=== PATIENT | female | born 1935 | race Caucasian/White ===

== ENCOUNTER 2016-10-29 13:47 | Inpatient (IN) | payer OTHER ==
[2016-10-29] MEDS ORDERED: VASOTEC IV IVP STA (14:33)
--- NOTE | 2016-10-29 14:34 | ED.PDOC ---
General ED Provider: Dr. STACI AUGUSTIN JR Chief Complaint: Hypertension Stated Complaint: B/P HIGH AT HOME YESTERDAY THIS AM. STATES 30 MINUTES AGO AT HOME 184/98. LEFT ARM FEELS HEAVY, FULLNESS LEFT NECK AND FEELS JITTERY. NO HISTORY OF HTN.[ End ]since 1-24 am 98.3 98 16 98% 175/1003 10 left arm heaviness. pressure left neck. feels jittery.[ End ] Time Seen by Physician: 14:30 Mode of Arrival: Walk-In Information Source: Patient Exam Limitations: No limitations Primary Care [facility] and T[facility] Documentation Reviewed and Agree: No Review of Systems - Review Of Systems Constitutional: Reports: Malaise Cardiac: Reports: Chest pain (INTO LEFT ARM "HEAVINESS") GI: Reports: No symptoms : Reports: No symptoms Musculoskeletal: Reports: No symptoms Skin: Reports: No symptoms Neurological: Reports: Anxiety (JITTERY- ALWAYS WHEN MY BLOOD PRESSURE IS UP) Endocrine: Reports: No symptoms Hematologic/Lymphatic: Reports: No symptoms All Other Systems: Other Past Medical History - Past Medical History Endocrine: Reports: None Cardiovascular: Reports: None Respiratory: Reports: None Hematological: Reports: None Gastrointestinal: Reports: GERD, Other. Denies: Gallstones, Pancreatitis Genitourinary: Reports: Other Neuro/Psych: Reports: None Musculoskeletal: Reports: None Cancer: Reports: Other (renal cancer, pancreatic cancer x2) Last Menstrual Period: NA - Surgical History General Surgical History: Reports: Other (NEPHRECTOMY, 70% PANCREAS, GB,SPEEN AND PART OF STOMACH REMOVED.FOR CANCER) - Family History Family History: Reports: Unknown - Social History Smoking Status: Former smoker Hx Substance Use: No Alcohol Screening: None Physical Exam - Physical Exam Appearance: Well-appearing Pain Distress: Mild Eyes: KADE, EOMI, Conjunctiva clear ENT: Ears normal, Nose normal, Oropharynx normal Neck: Supple Respiratory: Airway patent, Breath sounds clear, Breath sounds equal, Respirations nonlabored Cardiovascular: RRR, Pulses normal, No rub, No murmur GI/: Soft, Nontender, No masses, Bowel sounds normal, No Organomegaly Musculoskeletal: Normal strength, ROM intact, No edema, No calf tenderness Skin: Warm, Dry, Normal color Neurological: Sensation intact, Motor intact, Reflexes intact, Cranial nerves intact, Alert, Oriented Psychiatric: Affect appropriate, Mood appropriate Interpretation - EKG Interpretation Time of EKG #1: 14:20 Rate: Normal Rhythm: Sinus Ectopy: None Alpha: NL ST Segment: Normal Critical Care Note - Critical Care Note Total Time (mins): 10 Course - Course Hematology/Chemistry: 10/29/16 14:40 10/29/16 14:40 Orders, Labs, Meds: Lab Review 10/29/16 14:40 WBC 5.30 RBC 4.40 Hgb 13.8 Hct 41.2 MCV 93.6 MCH 31.4 H MCHC 33.5 RDW Coeff of Fatuma 14.9 H Plt Count 256 Neutrophils % (Manual) 55.0 Lymphocytes % (Manual) 32.0 Monocytes % (Manual) 4.0 Reactive Lymphocytes 9.0 H D-Dimer 0.50 Sodium 143 Potassium 3.7 Chloride 106 Carbon Dioxide 28 Anion Gap 12.7 BUN 18 Creatinine 0.92 Estimated GFR (MDRD) 59.00 BUN/Creatinine Ratio 19.56 Glucose 119 H Calcium 9.7 Total Bilirubin 0.48 AST 17 ALT 14 Alkaline Phosphatase 102 Total Creatine Kinase 45 Troponin I 0.0230 B-Natriuretic Peptide 54 Total Protein 7.0 Albumin 3.7 Globulin 3.3 Albumin/Globulin Ratio 1.12 Orders Category Date Time Status EKG-(ED ONLY) Stat CARDIO 10/29/16 14:09 Completed ED RADAR REPAIRER APPLIED .ONCE EMERGENCY 10/29/16 14:30 Active ED IV/MEDIPORT/POWERPORT .ONCE EMERGENCY 10/29/16 14:30 Active B-TYPE NATRIURETIC PEPTIDE Stat LAB 10/29/16 14:40 Completed CBC W/ AUTO DIFF Stat LAB 10/29/16 14:40 Completed COMPREHENSIVE METABOLIC PANEL Stat LAB 10/29/16 14:40 Completed CREATINE KINASE Stat LAB 10/29/16 14:40 Completed D-DIMER Stat LAB 10/29/16 14:40 Completed MANUAL DIFFERENTIAL Stat LAB 10/29/16 14:40 Completed TROPONIN I Stat LAB 10/29/16 14:40 Completed 0.9 % Sodium Chloride [Saline Flush] MEDS 10/29/16 14:30 Active 1 syr IVF PRN PRN CHEST, 1V AP ONLY Stat RADS 10/29/16 14:30 Completed Medications Generic Name Dose Route Start Last Admin Trade Name Freq PRN Reason Stop Dose Admin Acetaminophen 650 mg 10/29/16 17:08 Tylenol PO Q4H PRN Mild Pain Enalaprilat 1.25 mg 10/29/16 18:32 Vasotec Iv IVP Q12H PRN SYST>150 Sodium Chloride 1,000 mls @ 75 mls/hr 10/29/16 17:30 10/29/16 18:01 Sodium Chloride IV 75 mls/hr .[id number] FRANCISCO Administration Meclizine HCl 25 mg 10/29/16 17:12 Antivert PO BID PRN Dizziness Non-Formulary Medication 3,000 unit 10/30/16 09:00 Cholecalciferol (Vitamin D3) [Vitamin D3] PO DAILY [facility] Non-Formulary Medication 1 each 10/30/16 09:00 Multivitamin [Multi-Vitamin Daily] PO DAILY [facility] Non-Formulary Medication 500 mg 10/30/16 09:00 Magnesium [Magnesium] PO DAILY [facility] Non-Formulary Medication 2,500 mcg 10/30/16 09:00 Cyanocobalamin (Vitamin B-12) [B-12] SL DAILY [facility] Pantoprazole Sodium 40 mg 10/30/16 09:00 Protonix PO DAILY [facility] Sodium Chloride 1 syr 10/29/16 14:30 Saline Flush IVF PRN PRN To flush IV Vital Signs: Temp Pulse Resp BP Pulse Ox 10/29/16 13:49 98.3 F 98 H 16 175/103 H 98 BETH Risk Score BETH Risk Score: Risk Score Odds of by 30D 0 0.1 (0.1-0.2) 1 0.3 (0.2-0.3) 2 0.4 (0.3-0.5) 3 0.7 (0.6-0.9) 4 1.2 (1.0-1.5) 5 2.2 (1.9-2.6) 6 3.0 (2.5-3.6) 7 4.8 (3.8-6.1) Departure - Departure Time of Disposition: 17:20 Disposition: ADMITTED INPATIENT Discharge Problem: Chest pain Condition: Good Pt referred to PMD for follow-up: Yes Allergies/Adverse Reactions: Allergies Iodine and Iodide Containing Produc Adverse Reaction (Verified 10/29/16 13:48) Home Medications: Ambulatory Orders Cholecalciferol (Vitamin D3) [Vitamin D-3] 3,000 unit PO DAILY 07/30/15 Cyanocobalamin (Vitamin B-12) [B-12] 2,500 mcg SL DAILY 07/30/15 Magnesium 500 mg PO DAILY 07/30/15 Multivitamin [Multi-Vitamin Daily] 1 each PO DAILY 07/30/15 Pantoprazole Sodium [Protonix] 40 mg PO DAILY 07/30/15
[2016-10-29 15:02] LABS: HEMATOCRIT 41.2 % (37.0-47.0); HEMOGLOBIN 13.8 g/dl (12.0-16.0)
[2016-10-29 15:03] LABS: ANISOCYTOSIS NOT PRESENT (NOT PRESENT); MEAN CORPUSCULAR HEMOGLOBIN 31.4 pg (27.0-31.0); MEAN CORPUSCULAR HGB CONC 33.5 (31.8-35.4); MEAN CORPUSCULAR VOLUME 93.6 fl (81.0-99.0); PLATELET COUNT 256 10^3/uL (140-440)
[2016-10-29 15:13] LABS: ALBUMIN 3.7 g/dL (3.4-5.0); ALBUMIN/GLOBULIN RATIO 1.12; ANION GAP 12.7; BILIRUBIN,TOTAL 0.48 mg/dL (0.00-1.20); BUN/CREATININE RATIO 19.56; CALCIUM 9.7 mg/dL (8.2-10.2); CREATININE 0.92 mg/dL (0.60-1.30); POTASSIUM 3.7 mmol/L (3.5-5.10); TROPONIN I 0.023 ng/ml (0.0000-0.4000)
--- NOTE | 2016-10-29 16:34 | DI ---
EXAM: Chest one view HISTORY: Chest pain COMPARISON: 07/02/2012 TECHNIQUE: Single view of the chest was performed FINDINGS: The lungs are clear, excepting for granulomatous calcification. Are hyperinflated. Ther e is no pleural effusion or pneumothorax. The heart is normal in size. The mediastinal contour is normal, noting atherosclerosis. There are no acute abnormalities of the bones. There are surgical c lips in the upper abdomen. IMPRESSION: 1. No acute cardiopulmonary process. 2. Hyperinflated lungs may suggest chronic obstructive pulmonary disease.
[2016-10-29] MEDS ORDERED: TYLENOL PO PRN (17:08)
[2016-10-29] MEDS ORDERED: ANTIVERT PO PRN (17:12)
[2016-10-29 17:59] VITALS: BMI 25.9
[2016-10-29] MEDS: SODIUM CHLORIDE 1,000 ML IV SCH (18:01)
[2016-10-29] MEDS ORDERED: VASOTEC IV IVP PRN (18:32)
[2016-10-29] MEDS ORDERED: ASPIRIN EC ONE (20:58)
[2016-10-29] MEDS ORDERED: ASPIRIN EC PO SCH (21:00)
[2016-10-29] MEDS ORDERED: ZESTRIL PO STA (21:34)
[2016-10-29 23:29] LABS: TROPONIN I 0.031 ng/ml (0.0000-0.4000)
[2016-10-30] MEDS: SODIUM CHLORIDE 1,000 ML IV SCH ×2 (06:13→22:57)
[2016-10-30 07:26] LABS: BASOPHILS # (AUTO) 0.1 K/uL (0-0.2); BASOPHILS % (AUTO) 1.5 % (0.0-3.0); EOSINOPHILS # (AUTO) 0.1 K/ul (0.0-0.7); EOSINOPHILS % (AUTO) 2.3 % (0.0-7.0); HEMATOCRIT 41.2 % (37.0-47.0); HEMOGLOBIN 13.4 g/dl (12.0-16.0); IMMATURE GRANULOCYTE % (AUTO) 0.2 % (0.0-5.0); LYMPHOCYTES # (AUTO) 2.7 K/uL (0.60-3.4); LYMPHOCYTES % (AUTO) 44.3 (10.0-50.0); MEAN CORPUSCULAR HEMOGLOBIN 30.8 pg (27.0-31.0); MEAN CORPUSCULAR HGB CONC 32.5 (31.8-35.4); MEAN CORPUSCULAR VOLUME 94.7 fl (81.0-99.0); MONOCYTES # (AUTO) 0.7 K/uL (0.4-2.0); MONOCYTES % (AUTO) 11.2 (0-10); NEUTROPHILS # (AUTO) 2.4 K/ul (2.0-6.9); NEUTROPHILS % (AUTO) 40.5; PLATELET COUNT 234 10^3/uL (140-440); RED BLOOD COUNT 4.35 10^6/ul (4.20-5.40)
[2016-10-30 07:57] LABS: ALBUMIN 3.4 g/dL (3.4-5.0); ALBUMIN/GLOBULIN RATIO 1.13; ANION GAP 12.8; BILIRUBIN,TOTAL 0.73 mg/dL (0.00-1.20); BUN/CREATININE RATIO 20.48; CALCIUM 9.1 mg/dL (8.2-10.2); CREATININE 0.83 mg/dL (0.60-1.30); POTASSIUM 3.8 mmol/L (3.5-5.10); TOTAL PROTEIN 6.4 g/dL (5.8-8.1); TROPONIN I 0.012 ng/ml (0.0000-0.4000)
[2016-10-30] MEDS: NON-FORMULARY MEDICATION (Cyanocobalamin (Vitamin B-12) [B-12] 2,500 MCG) SL SCH (08:31)
[2016-10-30] MEDS: MAG-OX PO SCH (08:34)
[2016-10-30] MEDS: MULTIVITAMIN PO SCH (08:35)
[2016-10-30] MEDS: PROTONIX PO SCH (08:36)
[2016-10-30] MEDS: VITAMIN D PO SCH (08:36)
[2016-10-30] MEDS ORDERED: MAGNESIUM 500 MG PO SCH (09:00)
[2016-10-30] MEDS ORDERED: CHOLECALCIFEROL 3000 UNIT PO SCH (09:00)
[2016-10-30] MEDS ORDERED: NON-FORMULARY MEDICATION (Multivitamin [Multi-Vitamin Daily] 1 EACH) PO SCH ×22 (09:00)
[2016-10-31] MEDS: PROTONIX PO SCH (05:46)
[2016-10-31 07:13] LABS: BASOPHILS # (AUTO) 0.1 K/uL (0-0.2); EOSINOPHILS # (AUTO) 0.2 K/ul (0.0-0.7); EOSINOPHILS % (AUTO) 2.6 % (0.0-7.0); HEMATOCRIT 40.3 % (37.0-47.0); HEMOGLOBIN 13.7 g/dl (12.0-16.0); IMMATURE GRANULOCYTE % (AUTO) 0.3 % (0.0-5.0); LYMPHOCYTES # (AUTO) 2.7 K/uL (0.60-3.4); LYMPHOCYTES % (AUTO) 35.3 (10.0-50.0); MEAN CORPUSCULAR HEMOGLOBIN 31.1 pg (27.0-31.0); MEAN CORPUSCULAR VOLUME 91.4 fl (81.0-99.0); MONOCYTES # (AUTO) 0.7 K/uL (0.4-2.0); MONOCYTES % (AUTO) 9.5 (0-10); NEUTROPHILS % (AUTO) 51.3; PLATELET COUNT 263 10^3/uL (140-440); RED BLOOD COUNT 4.41 10^6/ul (4.20-5.40)
[2016-10-31 07:33] LABS: ALBUMIN 3.4 g/dL (3.4-5.0); ALBUMIN/GLOBULIN RATIO 1.03; ANION GAP 10.6; BILIRUBIN,TOTAL 0.69 mg/dL (0.00-1.20); BUN/CREATININE RATIO 21.51; CALCIUM 9.1 mg/dL (8.2-10.2); CREATININE 0.79 mg/dL (0.60-1.30); POTASSIUM 3.6 mmol/L (3.5-5.10); TOTAL PROTEIN 6.7 g/dL (5.8-8.1)
--- NOTE | 2016-10-31 08:54 | HP ---
CHIEF COMPLAINT: Elevated blood pressure and had sensation left shoulder. SOURCE OF HISTORY: Patient, reliability good. HISTORY OF PRESENT ILLNESS: The patient woke up Thursday morning and took her blood pressure and it was elevated to about 180. Subsequent blood pressure determination was normal. She felt somewhat shaky when the blood pressure was elevated. The patient on Thursday morning was noted a rise in her blood pressure and also feeling shaky inside with weakness. She had sensation of being tired or a different sensation of the left mandible, as well as the left neck and left shoulder. The neck has pain and she always had pain in her neck. She does go to a chiropractor for the neck problem. This was not accompanied by nausea, anorexia or sweating. The patient was evaluated in the emergency and the emergency room physician felt that the patient needed further work-up and so admission was felt necessary. PAST PERSONAL HISTORY: The patient had cataract surgery in the right eye, cholecystectomy, history of pancreatectomy with splenectomy and partial gastrectomy, right renal nephrectomy secondary to carcinoma. Removal of parathyroid adenoma. FAMILY HISTORY: Sister was diabetic. SOCIAL HISTORY: The patient is and resides with her . 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 She used to smoke, but stopped several years ago. No alcoholic beverages. MEDICATIONS: Prior to this admission Protonix 40 mg daily Vitamin B12,500 mcg sublingually daily Vitamin D3 3,000 IU daily Multivitamin one daily Magnesium 500 mg daily Antivert 25 mg twice a day as needed ALLERGIES: The patient is allergic is Iodine and Iodine contrast medium. REVIEW OF SYSTEMS: CONSTITUTIONAL: The patient is alert with no fever and no chills or fatigue. BATTERY PLATE REMOVER: No headaches and no ataxia. No history of seizure disorder and no tremors. VISUAL: Denies any blurred vision, double vision or transient loss of vision. AUDITORY: Hearing is adequate. Denies any tinnitus. No pain or drainage. RESPIRATORY: No cough, no hemoptysis. CARDIOVASCULAR: Patient had wire threader rise of blood pressure without any significant headache. This later was followed by ill defined sensation of the left shoulder and left mandible, not necessarily pain. She has pain in the left side of the neck, but has chronic neck problems. GASTROINTESTINAL: Denies any nausea or anorexia, dysphagia or abdominal pain. GENITOURINARY: Denies any pain, frequency or urgency of urination. MUSCULOSKELETAL: Denies any significant joint or muscle pains. INTEGUMENT: Denies any rash or pruritus. ENDOCRINE: Negative. HEMATOLOGIC: No history of prolonged bleeding. PSYCHIATRIC: Affect is normal. PHYSICAL EXAMINATION: GENERAL: We have a 81 year old female admitted to the hospital because of elevated blood pressure in the wire threader hours. VITAL SIGNS: HEAD: Unremarkable. FACE: Symmetrical and equal with no facial weakness. No tenderness in the frontal or maxillary sinus areas to palpation under pressure. EYES: Pupils equal/reactive to light. Conjunctivae not pale. Sclerae not icteric. MOUTH: Unremarkable. THROAT: No inflammation, tumors or exudate. NECK: No masses. No bruit. No tenderness. No rigidity. CHEST: Essentially symmetrical and equal with good expansion. LUNGS: Breath sounds are heard in both sides. No rales or wheezing. HEART: Audible and regular with good tones. No murmurs. ABDOMEN: Scar from previous surgeries. No ventral herniation. No remarkable tenderness. Bowel sounds are active. No bruit. LOWER EXTREMITIES: Symmetrical and equal with no significant ankle edema. Pedal pulses present. UPPER EXTREMITIES: Symmetrical and equal. ASSESSMENT: 1. HYPERTENSION, FLUCTUATING 2. ILL DEFINED SYMPTOMS OF LEFT MANDIBLE AND LEFT SHOULDER 3. LEFT NECK PAIN 4. 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 HISTORY OF RIGHT RENAL CELL CARCINOMA, OPERATED. PLAN: 1. Urine collection for catecholamines and DMA. I explained to the patient that I don't know exactly what is causing the rise for the blood pressure in the morning, but we will be looking into it. I know a tumor know as Pheochromocytoma will produce that fluctuating rise in blood pressure. MTDD
[2016-10-31] MEDS ORDERED: ZEBETA PO SCH (09:00)
--- NOTE | 2016-10-31 09:06 | PN ---
DATE OF VISIT: 10/30/16 The patient today is alert and oriented times four, not dyspneic or tachypneic. She had not had the tired sensation in the left mandible and left shoulder today. She did undergo stress testing plus echocardiogram. The unofficial result transmitted to me that the studies were unremarkable. I need to see the official report before discussing it with the patient. The patient's vital signs at 1:56 p.m. showed a temperature 97.5, pulse 82, blood pressure 151/77 and at 10 o'clock was 140/80, 5:29 was 128/70, 2 o'clock in the morning 140/60. Respiratory rate 20, oxygen saturation 99 to 100 at room air. We are collecting urine for the catecholamines. I also would request a plasma free metanephrines and conjugated normetanephrines. [facility]
[2016-10-31] MEDS: NON-FORMULARY MEDICATION (Cyanocobalamin (Vitamin B-12) [B-12] 2,500 MCG) SL SCH (09:36)
[2016-10-31] MEDS: MAG-OX PO SCH (09:37)
[2016-10-31] MEDS: MULTIVITAMIN PO SCH (09:37)
[2016-10-31] MEDS: VITAMIN D PO SCH (09:37)
[2016-10-31 10:53] VITALS: BP 151/66; TEMP 97.7
--- NOTE | 2016-10-31 11:30 | PCM.CONS ---
CONSULTING PROVIDER: Dr. LIZA MADRIGAL ATTENDING PROVIDER: Dr. NICOLASA [facility] DATE OF SERVICE: 10/31/16 SUBJECTIVE: This 81 year old WHITE/ F was hospitalized 10/29/16. The patient was seen in consultation for chest pain and hypertension. The stress echo was negative for ischemia. She had an episode of SVT post exercise which was broken by carotid massage. The patient may benefit from a beta zulema. REVIEW OF SYSTEMS: CONSTITUTIONAL: No night sweats. No fatigue, malaise, lethargy. No fever or chills. HEENT: Eyes: No visual changes. No eye pain. No eye discharge. ENT: No runny nose. No epistaxis. No sinus pain. No odynophagia. No congestion. RESPIRATORY: No cough, no congestion. No hemoptysis. CARDIOVASCULAR: No angina symptoms. No CHF symptoms. No atypical chest pain for CAD. No palpitations. No shortness of breath. GASTROINTESTINAL: No abdominal pain. No nausea or vomiting. No diarrhea or constipation. No hematemesis. No hematochezia. GENITOURINARY: No urgency. No frequency. No dysuria. No hematuria. No obstructive symptoms. No discharge. No pain. No significant abnormal bleeding. MUSCULOSKELETAL: No musculoskeletal pain; no joint swelling. NEUROLOGICAL: Awake, alert, oriented to time, place and person. No headache. No neck pain. No syncope. No seizures. No dizziness. PSYCHIATRIC: Not anxious. No depression. No suicidal thoughts. No homicidal thoughts. SKIN: No rash. No lesions. No wounds. ENDOCRINE: No unexplained weight loss. No weight gain. HEMATOLOGIC/LYMPHATIC: No anemia. No purpura. No petechiae. No prolonged or excessive bleeding. No palpable lymph nodes. PHYSICAL EXAMINATION: GENERAL: The patient is awake, alert and oriented, lying in bed in no distress. VITAL SIGNS: Temperature 97.3 F, Pulse 74, Respiratory Rate 16, BP 134/64, Pulse Ox 95% HEENT: Head normocephalic, atraumatic. Eyes: Extraocular muscles are intact. Pupils are equal, round and reactive to light and accommodation. Ears: No lesions. Nose appeared normal. Throat: No exudate or erythema. NECK: Supple. No JVD, no carotid bruit. No lymphadenopathy or thyromegaly. LUNGS: Clear to auscultation. Percussion note normal. Chest symmetrical. HEART: S1, S2, no S3. No murmurs. No cyanosis or clubbing. No ascites. Pulses: Dorsalis pedis and posterior tibial pulses +1 to +2 both sides. ABDOMEN: Soft. Non-tender. Bowel sounds active. No CVA tenderness. No mass felt. EXTREMITIES: No edema. Full range of motion of all extremities, equal. NEUROLOGIC: No focal deficit. Cranial nerves II through XII are grossly intact. No headache, no double vision or headache. SKIN: Not dry. Intact. Turgor-normal. LYMPHATIC: No palpable lymph nodes/no lymphedema. MUSCULOSKELETAL: Normal joints with no swelling. Muscle tone is normal. LAB REVIEW: 10/31/16 06:45 10/31/16 06:45 10/31/16 06:45: WBC 7.70, RBC 4.41, Hgb 13.7, Hct 40.3, MCV 91.4, MCH 31.1 H, MCHC 34.0, RDW Coeff of Fatuma 14.6, Plt Count 263, Immature Gran % (Auto) 0.3, Neut % (Auto) 51.3, Lymph % (Auto) 35.3, Terry % (Auto) 9.5, Eos % (Auto) 2.6, Baso % (Auto) 1.0, Immature Gran # (Auto) 0.0, Neut # 4.0, Lymph # 2.7, Terry # 0.7, Eos # 0.2, Baso # 0.1, Sodium 140, Potassium 3.6, Chloride 109 H, Carbon Dioxide 24, Anion Gap 10.6, BUN 17, Creatinine 0.79, Estimated GFR (MDRD) 70.00 , BUN/Creatinine Ratio 21.51, Glucose 98, Calcium 9.1, Total Bilirubin 0.69, AST 19, ALT 13, Alkaline Phosphatase 105, Total Protein 6.7, Albumin 3.4, Globulin 3.3, Albumin/Globulin Ratio 1.03 10/30/16 07:00: Sodium 141, Potassium 3.8, Chloride 110 H, Carbon Dioxide 22 L, Anion Gap 12.8, BUN 17, Creatinine 0.83, Estimated GFR (MDRD) 66.00, BUN/ Creatinine Ratio 20.48, Glucose 88, Calcium 9.1, Total Bilirubin 0.73, AST 19, ALT 14, Alkaline Phosphatase 91, Total Creatine Kinase 46, Troponin I 0.0120, Total Protein 6.4, Albumin 3.4, Globulin 3.0, Albumin/Globulin Ratio 1.13 ASSESSMENT: 1. Chest pain noncardiac 2. Hypertension borderline 3. Episode of SVT post exercise RECOMMENDATIONS/PLAN: 1. Zebeta 2.5 mg twice a day for labile systolic hypertension. Plan and coordination of the patient's care discussed in the presence of Traffic Incident Management Manager and Nurse. CONDITION: STABLE SCRIBED BY: CARLY RAMIREZ Stripper Shovel Operator scribed while in presence of service performed by Dr. LIZA MADRIGAL on 10/31/16 ([id number])
--- NOTE | 2016-10-31 13:01 | ECHOSTRESS ---
Date of Exam: 10/30/16 [facility]ing [facility] Reason for Echo: CHEST PAIN, HTN, STRESS TEST--NO ISCHEMIA M-Mode Normal Adult Results LV Dimensions Normal Adult Results AoV Opening excursions >1.6 LVEDD-base- 3.5-5.8 Ao root dimensions 2.0-3.7 LVESD-base- 3.1-4.6 L. Atrium dimensions 1.9-3.8 Post. Wall thickness 0.8-1.1 IV septum (thickness) 0.7-1.2 Post. Wall excursion 0.72-1.3 Septal motion Systolic motion R. Ventricular cavity 1.5-2.0 LVEF 60% Paradoxical septal wall motion 2-D: NORMAL LEFT VENTRICULAR CONTRACTILITY--RESTING AND POST EXERCISE M-MODE: MV: AV: TV: PV: CHAMBER SIZE: WALL MOTION: NORMAL LEFT VENTRICULAR CONTRACTILITY--RESTING AND POST EXERCISE PERICARDIUM: INTERPRETATION: 1. NORMAL LEFT VENTRICULAR CONTRACTILITY--RESTING AND POST EXERCISE MTDD
--- NOTE | 2016-10-31 13:13 | STRESSMOD ---
Ordering Physician: NICOLASA FLEMING Date of Test: 10/30/16 Medical History: CHEST PAIN, HTN, L ARM PAIN, L JAW PAIN Current Medications: ANTIVERT Physical Findings: S1, S2, NO S3 Resting EKG: SINUS RHYTHM/NO ACUTE CHANGES Target Heart Rate: 119/141 STAGE MPH/GRADE HEART RATE BPM BLOOD PRESSURE mmhg RHYTHM S-T SEGMENT UP DOWN SYMPTOMS,COMMENTS At Rest 90 164/74 SR X NONE 1 1.7/0% 126 182/62 SR X NONE 2 1.7/5% 3 1.7/10% 4 2.5/12% 5 3.4/14% 6 4.2/16% 7 5.18% Immediately after 136 SR X FATIGUE Total Time: 4:20 Maximum Heart Rate Reached: 134 Reason for Termination: FATIGUE ___ INTERPRETATION: 97% OXYGEN SATURATION WITH EXERCISE ON ROOM AIR METS 3.4 1. NO EVIDENCE OF ISCHEMIA BY ST-T WAVE 2. NO CHEST PAIN OR CHEST DISCOMFORT 3. BLOOD PRESSURE RESPONSE HYPERTENSION/RESTING HYPERTENSION 4. NO ARRHYTHMIAS NORMAL LEFT VENTRICULAR CONTRACTILITY RESTING AND POST EXERCISE SVT WITH RATE 135/MINUTE NOTED POST EXERCISE. -CONVERTED TO SINUS RHYTHM WITH CAROTID MESSAGE MTDD
--- NOTE | 2016-10-31 13:27 | ECHO2D ---
Date of Exam: 10/30/16 [facility] Reason for Echo: CHEST PAIN, HTN M-Mode Normal Adult Results LV Dimensions Normal Adult Results AoV Opening excursions >1.6 >1.6 LVEDD-base- 3.5-5.8 4.7 Ao root dimensions 2.0-3.7 3.3 LVESD-base- 3.1-4.6 L. Atrium dimensions 1.9-3.8 4.1 Post. Wall thickness 0.8-1.1 1.1 IV septum (thickness) 0.7-1.2 1.0 Post. Wall excursion 0.72-1.3 NORMAL Septal motion NORMAL Systolic motion R. Ventricular cavity 1.5-2.0 NORMAL LVEF 60% 66% Paradoxical septal wall motion NORMAL 2-D : 2-D M Mode Echocardiogram was performed using apical four chamber and left parasternal long and short axis views. Mitral, tricuspid and aortic valves appear to be normal. Contractility of the left ventricle seems to be normal, so is the cavity size. Left atrial cavity size and aortic root appear to be normal. There is no pericardial effusion. There is no thrombus noted in the left ventricular or left aortic cavity. No mitral valve prolapse noted. M-MODE: MV: NORMAL AV: NORMAL TV: NORMAL PV: CHAMBER SIZE: NORMAL WALL MOTION: NORMAL PERICARDIUM: NORMAL INTERPRETATION: 1. NORMAL 2 "D" "M" MODE ECHO MTDD
--- NOTE | 2016-10-31 13:44 | CONS ---
DATE OF CONSULTATION: 10/30/16 REASON FOR CONSULTATION: Hypertension, arm and jaw discomfort. HISTORY OF PRESENT ILLNESS: This is a 81-year-old female patient with complaint that 30 minutes prior to coming to the emergency room she began feeling "jittery". She explained when she had an episode of hypertension the day before this episode, the symptoms were similar. She said she began feeling a "heaviness" in her left arm radiating upward to her left neck and left jaw. She denies having pain in her chest. She also denied having nausea or vomiting, shortness of breath or diaphoresis. She said she did feel a generalized weakness with the episode. REVIEW OF SYSTEMS: CONSTITUTIONAL: No night sweats. No fatigue, malaise, lethargy. No fever or chills. HEENT: Eyes: No visual changes. No eye pain. No eye discharge. ENT: No runny nose. No epistaxis. No sinus pain. No sore throat. No odynophagia. No ear pain. No congestion. RESPIRATORY: No cough, no congestion. No hemoptysis. CARDIOVASCULAR: See above. No wheezing, no edema, no PND, no orthopnea, no weight gain. GASTROINTESTINAL: No abdominal pain. No nausea or vomiting. No diarrhea or constipation. No hematemesis. No hematochezia. GENITOURINARY: No urgency. No frequency. No dysuria. No hematuria. No obstructive symptoms. No discharge. No pain. No significant abnormal bleeding. MUSCULOSKELETAL: Lower back pain. NEUROLOGICAL: No headache. No neck pain. No syncope. No seizures. No dizziness. PSYCHIATRIC: Not anxious. No depression. No suicidal thoughts. No homicidal thoughts. SKIN: Warm and dry. ENDOCRINE: No unexplained weight loss. No weight gain. HEMATOLOGIC/LYMPHATIC: No anemia. No purpura. No petechiae. No prolonged or excessive bleeding. No palpable lymph nodes. MEDICATIONS: (Reviewed with its side effects in detail - Iodine) 1. Protonix 2. MVI 3. Antivert 4. Magnesium 5. Vitamin B12 6. Vitamin D3 ALLERGIES: IODINE AND IODIDE CONTAINING PRODUCTS PAST MEDICAL HISTORY/PAST SURGICAL HISTORY: 1. GERD 2. Renal cancer 3. Pancreatic cancer and recurrence 4. Renal cancer status post right nephrectomy 5. Splenectomy 6. 70% of pancreas removed 7. Cholecystectomy SOCIAL/PERSONAL/FAMILY HISTORY: The patient is a light smoker by history since 1963. No alcohol use. . Family History: Mother - hypertension. Father - diabetes mellitus. Siblings - Diabetes mellitus, hypertension (sister). PHYSICAL EXAMINATION: GENERAL: The patient is awake, alert, oriented times three. Height 5'4", weight 151 lbs. VITAL SIGNS: BP 128/70, pulse 65, respiratory rate 18, temperature 97.1, 02 sat 97% on room air. HEENT: Head normocephalic, atraumatic. Eyes: Extraocular muscles are intact. Pupils are equal, round and reactive to light and accommodation. Ears: No lesions. Nose appeared normal. Throat: No exudate or erythema. NECK: Supple. No JVD, no carotid bruit. No lymphadenopathy or thyromegaly. LUNGS: Clear to auscultation. Percussion note normal. Chest symmetrical. HEART: S1, S2, no S3. No murmurs. No cyanosis or clubbing. No ascites. Pulses: Dorsalis pedis and posterior tibial pulses +2 both sides. ABDOMEN: Soft. Nontender. Bowel sounds active. No CVA tenderness. No mass felt. EXTREMITIES: No cyanosis. No edema. Full range of motion of all extremities, equal. NEUROLOGIC: No focal deficit. Cranial nerves II through XII are grossly intact. No headache, no double vision or headache. SKIN: Warm and dry. Intact. Turgor - normal. LYMPHATIC: No palpable lymph nodes/no lymphedema. MUSCULOSKELETAL: Normal joints with no swelling. Muscle tone is normal. LABS/X-RAYS/INVESTIGATIONS/INTERIM RELEVANT DATA: Chest x-ray - no acute cardiopulmonary process. Hyperinflated lungs suggesting COPD. Cardiac markers times two within normal limits. EKG #1 sinus rhythm. EKG #2 sinus rhythm. TSH 3.425, BNP 54, FT4 1.05. Triglycerides 54, cholesterol 155 , HDL 51, LDL 93, chol/HDL 3.0. WBC 5.30, hgb 13.8, platelets 256, HCT 41.2. Sodium 143, chloride 106, BUN 18, glucose 119, K+ 3.7, c02 28, creatinine 0.92. ASSESSMENT: 1. CHEST PAIN, LEFT 2. RENAL CELL CARCINOMA, RIGHT NEPHRECTOMY 3. PANCREATIC CANCER - METASTATIC PLAN: 1. Echo - normal. 2. Stress echo - no ischemia. 3. Lipid profile good. 4. The case discussed with attending. 5. EKG times two/cardiac markers all negative. Thanks for referral. TIME SPENT: 60 minutes. GOLDY
--- NOTE | 2016-11-04 09:56 | CONS ---
DATE OF SERVICE: 10/30/16 CONSULT FOLLOWUP SUBJECTIVE: 81-year-old white female hospitalized with left shoulder pain, left neck pain and severe hypertension. The patient's condition is stable at the present time. REVIEW OF SYSTEMS: CONSTITUTIONAL: No night sweats. No fatigue, malaise, lethargy. No fever or chills. HEENT: Eyes: No visual changes. No eye pain. No eye discharge. ENT: No runny nose. No epistaxis. No sinus pain. No sore throat. No odynophagia. No ear pain. No congestion. RESPIRATORY: No cough, no congestion. No hemoptysis. CARDIOVASCULAR: No angina symptoms. No CHF symptoms. No atypical chest pain for CAD. No palpitations. No shortness of breath. GASTROINTESTINAL: No abdominal pain. No nausea or vomiting. No diarrhea or constipation. No hematemesis. No hematochezia. GENITOURINARY: No urgency. No frequency. No dysuria. No hematuria. No obstructive symptoms. No discharge. No pain. No significant abnormal bleeding. MUSCULOSKELETAL: No musculoskeletal pain. No joint swelling. No arthritis. NEUROLOGICAL: No headache. No neck pain. No syncope. No seizures. No dizziness. PSYCHIATRIC: Not anxious. No depression. No suicidal thoughts. No homicidal thoughts. SKIN: No rash. No lesions. No wounds. ENDOCRINE: No unexplained weight loss. No weight gain. HEMATOLOGIC/LYMPHATIC: No anemia. No purpura. No petechiae. No prolonged or excessive bleeding. No palpable lymph nodes. PHYSICAL EXAMINATION: GENERAL: The patient is oriented to time, place and person. VITAL SIGNS: Temperature 97, pulse 65, respiratory rate 18, BP 128/70, pulse ox 97%. HEENT: Head normocephalic, atraumatic. Eyes: Extraocular muscles are intact. Pupils are equal, round and reactive to light and accommodation. Ears: No lesions. Nose appeared normal. Throat: No exudate or erythema. NECK: Supple. No JVD, no carotid bruit. No lymphadenopathy or thyromegaly. LUNGS: Decreased breath sounds. Clear to auscultation. Percussion note normal. Chest symmetrical. HEART: S1, S2, no S3. No murmurs. No cyanosis or clubbing. No ascites. Pulses: Dorsalis pedis and posterior tibial pulses +1 bilaterally. ABDOMEN: Soft. Nontender. Bowel sounds active. No CVA tenderness. No mass felt. EXTREMITIES: No pedal edema. Full range of motion of all extremities, equal. NEUROLOGIC: No focal deficit. Cranial nerves II through XII are grossly intact. No headache, no double vision or headache. SKIN: Not dry. Intact. Turgor - normal. LYMPHATIC: No palpable lymph nodes/no lymphedema. MUSCULOSKELETAL: Normal joints with no swelling. Muscle tone is normal. EKG sinus rhythm. No acute changes times two. Cardiac markers negative. ASSESSMENT: 1. CHEST PAIN LIKELY ETIOLOGY NONCARDIAC - THE PATIENT DOES NOT HAVE ANY OTHER RISK FACTORS. THE PATIENT'S LIPID PROFILE IS NEGATIVE. ECHO SHOWED NORMAL LV CONTRACTILITY, NORMAL VALVES. STRESS ECHO - NO ISCHEMIA. THE PATIENT HAD SVT POST EXERCISE WITH RATE OF 135 PER MINUTE, WAS BROKEN WITH CAROTID MASSAGE. THE PATIENT HAS HYPERTENSIVE RESPONSE TO EXERCISE AND ALSO THE BASELINE BLOOD PRESSURE WAS HIGH. RECOMMENDATIONS: 1. Low dose beta zulema or Cardizem 60 mg twice a day. The patient's chest pain seems to be noncardiac. CONDITION: Stable. MTDD
--- NOTE | 2016-11-04 11:33 | DS ---
PATIENT IDENTIFICATION: 81 year old female who was admitted to the hospital via the emergency room. The patient had noted a marked rise of her blood pressure early in the morning hours for the last two days. The patient, on the second day, felt some heaviness sensation or discomfort in the left mandibular area, as well as the left shoulder prompting the emergency room visit. The work-up in the emergency room was unremarkable consisting of normal cardiac enzymes and isoenzymes. No acute changes in EKG. Chest x-ray without any acute cardiopulmonary process. HOSPITAL COURSE: Renal panel showed a estimated GFR at 59 initially and went up to 70 on the day of discharge. Stress test was negative for any ischemic changes and no chest discomfort. Echocardiogram normal. Normal valves and ejection fraction 60%. Plasma free and conjugated metanephrines and normetanephrine were collected, as well as urine for catecholamines. BMA is scheduled after following a diet. Blood pressure on admission was 175/103 and then 6 p.m. was 198 and 190 and by 7:28 was 134/62 and 9:48 160/80 and watershed coordinator hours was 126/70, 2 a.m. 142/60 and 5 a.m. 128/70, at 10 a.m. 148/80, 1 :56 p.m. 151/77, 5:40 p.m. 140/77, 10 p.m. 158/73, 10/31/16 at 2 a.m. 129/68 and 6 p.m. 134/64, 10 a.m. 151/66. This patient was given Vasotec 1.25 mg IV in the emergency room and was given prn and this was discontinued. Lisinopril 20 mg daily was instituted. Consulting Management Lead, Dr. Heck, did prescribe Zebeta 2.5 mg twice a day. The patient's vital signs were more or less stable during the hospital stay and no chest pain and no recurrence of the ill defined symptomatology involving the left mandible and left shoulder. The patient at the time of discharge was alert , ambulatory with movement of all extremities. FACE: Symmetrical and equal with no facial weakness. No tenderness in the frontal or maxillary sinus areas. NECK: No masses, no bruit. LUNGS: Clear to auscultation. HEART: Normal sinus rhythm. ABDOMEN: Soft with no tenderness. This patient has scar from previous surgery. LOWER EXTREMITIES: No tenderness. FINAL DIAGNOSES: 1. HYPERTENSION, FLUCTUATING. ETIOLOGY UNDETERMINED. 2. ILL DEFINED SYMPTOMATOLOGY INVOLVING THE MANDIBLE AND LEFT SHOULDER, NONCARDIAC 3. HISTORY OF RIGHT RENAL CELL CARCINOMA, OPERATED SEVERAL YEARS AGO 4. 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 Ziac 2.4/6.25 mg tablet twice a day. 2. See me in about a week and hopefully we will have the results of the plasma free and conjugated MN and NMN. MTDD
[2016-11-05 02:24] LABS: NORMETANEPHRINE, PL 43 pg/mL (0-145)
[2016-11-05 07:36] LABS: METANEPHRINE, PL 25 pg/mL (0-62)
[2016-11-08 02:12] LABS: URINE DOPAMINE 33 ug/L (Undefined); URINE EPINEPHRINE 1 ug/L (Undefined); URINE EPINEPHRINE 24 HR 4 ug/24 hr (0-20); URINE NOREPINEPHRINE 7 ug/L (Undefined); URINE NOREPINEPHRINE 24 HR 27 ug/24 hr (0-135)
[2016-11-11 09:24] LABS: URINE DOPAMINE 24 HR 129 ug/24 hr (0-510)
== END 2016-10-31 13:10 | disposition home or self-care (01) | DRG 305 ==
LOC: ED 13:47 → MEDSURG B 16:47
PROVIDERS: ADMIT General Practice; ATTEND General Practice
DX: I10 Essential (primary) hypertension (principal); I47.1 Supraventricular tachycardia; R07.89 Other chest pain; R68.84 Jaw pain; M25.512 Pain in left shoulder; R68.89 Other general symptoms and signs; Z85.07 Personal history of malignant neoplasm of pancreas; Z85.528 Personal history of other malignant neoplasm of kidney; Z79.899 Other long term (current) drug therapy; Z90.5 Acquired absence of kidney; Z72.0 Tobacco use; Z90.411 Acquired partial absence of pancreas
CPT/HCPCS: 36415; 80053; 80061; 81050; 82384; 82550; 83880; 84439; 84443; 84484; 85007; 85025; 85379; 93005; 93010; 99223; 99232; 99239; 99284

== ENCOUNTER 2017-03-03 10:11 | Outpatient (CLI) ==
[2017-03-03 12:47] LABS: BASOPHILS # (AUTO) 0.1 K/uL (0-0.2); BASOPHILS % (AUTO) 1.1 % (0.0-3.0); EOSINOPHILS # (AUTO) 0.1 K/ul (0.0-0.7); EOSINOPHILS % (AUTO) 1.9 % (0.0-7.0); HEMATOCRIT 42.6 % (37.0-47.0); IMMATURE GRANULOCYTE % (AUTO) 0.2 % (0.0-5.0); LYMPHOCYTES # (AUTO) 2.2 K/uL (0.60-3.4); LYMPHOCYTES % (AUTO) 46.1 (10.0-50.0); MEAN CORPUSCULAR HGB CONC 32.9 (31.8-35.4); MEAN CORPUSCULAR VOLUME 94.5 fl (81.0-99.0); MONOCYTES # (AUTO) 0.4 K/uL (0.4-2.0); NEUTROPHILS # (AUTO) 1.9 K/ul (2.0-6.9); NEUTROPHILS % (AUTO) 41.7; PLATELET COUNT 269 10^3/uL (140-440); RED BLOOD COUNT 4.51 10^6/ul (4.20-5.40); WHITE BLOOD COUNT 4.66 K/ul (4.6-10.2)
[2017-03-03 12:55] LABS: BILIRUBIN,URINE Negative (NEGATIVE); KETONES,URINE Negative (NEGATIVE); LEUKOCYTE ESTERASE ,URINE Trace (NEGATIVE); NITRITE,URINE Negative (NEGATIVE); PH,URINE 7.5 (5-9); PROTEIN,URINE Negative (NEGATIVE); URINE, BLOOD Trace-intact (NEGATIVE)
[2017-03-03 12:56] LABS: ADD URINE MICROSCOPIC YES
[2017-03-03 12:59] LABS: ALBUMIN 3.7 g/dL (3.4-5.0); ANION GAP 13.2; BILIRUBIN,TOTAL 0.59 mg/dL (0.00-1.20); BUN/CREATININE RATIO 20.45; CALCIUM 9.7 mg/dL (8.2-10.2); CHOL/HDL RATIO 3.2 (4.5-5.5); CREATININE 0.88 mg/dL (0.60-1.30); POTASSIUM 4.2 mmol/L (3.5-5.10); TOTAL PROTEIN 7.4 g/dL (5.8-8.1)
== END 2017-03-03 10:12 | disposition home or self-care (01) ==
LOC: LAB 10:11
PROVIDERS: ATTEND General Practice
DX: K21.9 Gastro-esophageal reflux disease without esophagitis (principal); C64.1 Malignant neoplasm of right kidney, except renal pelvis; C25.9 Malignant neoplasm of pancreas, unspecified; M51.36 Other intervertebral disc degeneration, lumbar region; D35.1 Benign neoplasm of parathyroid gland; Z79.899 Other long term (current) drug therapy
CPT/HCPCS: 36415; 80053; 80061; 81001; 85025

== ENCOUNTER 2017-07-23 09:23 | Outpatient (CLI) ==
[2017-07-23 10:16] LABS: BASOPHILS # (AUTO) 0.1 K/uL (0-0.2); BASOPHILS % (AUTO) 1.2 % (0.0-3.0); EOSINOPHILS # (AUTO) 0.1 K/ul (0.0-0.7); EOSINOPHILS % (AUTO) 1.7 % (0.0-7.0); HEMATOCRIT 41.4 % (37.0-47.0); HEMOGLOBIN 13.9 g/dl (12.0-16.0); IMMATURE GRANULOCYTE % (AUTO) 0.2 % (0.0-5.0); LYMPHOCYTES # (AUTO) 2.2 K/uL (0.60-3.4); MEAN CORPUSCULAR HEMOGLOBIN 31.2 pg (27.0-31.0); MEAN CORPUSCULAR HGB CONC 33.6 (31.8-35.4); MEAN CORPUSCULAR VOLUME 92.8 fl (81.0-99.0); MONOCYTES # (AUTO) 0.5 K/uL (0.4-2.0); MONOCYTES % (AUTO) 9.3 (0-10); NEUTROPHILS # (AUTO) 2.1 K/ul (2.0-6.9); NEUTROPHILS % (AUTO) 42.6; PLATELET COUNT 263 10^3/uL (140-440); RED BLOOD COUNT 4.46 10^6/ul (4.20-5.40); WHITE BLOOD COUNT 4.82 K/ul (4.6-10.2)
[2017-07-23 10:37] LABS: ALBUMIN 3.8 g/dL (3.4-5.0); ALBUMIN/GLOBULIN RATIO 1.09; ANION GAP 11.5; BILIRUBIN,TOTAL 0.8 mg/dL (0.00-1.20); BUN/CREATININE RATIO 21.42; CALCIUM 9.9 mg/dL (8.2-10.2); CREATININE 0.84 mg/dL (0.60-1.30); POTASSIUM 4.5 mmol/L (3.5-5.10); TOTAL PROTEIN 7.3 g/dL (5.8-8.1)
[2017-07-24 06:12] LABS: TESTOSTERONE 48 ng/dL (3-41)
[2017-07-24 19:15] LABS: FREE TESTOSTERONE 2.5 pg/mL (0.0-4.2)
== END 2017-07-23 09:24 | disposition home or self-care (01) ==
LOC: LAB 09:23
PROVIDERS: ATTEND Physician Assistant Medical
DX: R03.0 Elevated blood-pressure reading, without diagnosis of hypertension (principal); L82.1 Other seborrheic keratosis; D22.39 Melanocytic nevi of other parts of face; L57.0 Actinic keratosis; L65.9 Nonscarring hair loss, unspecified
CPT/HCPCS: 36415; 80053; 82626; 82652; 84402; 84403; 85025

== ENCOUNTER 2017-09-04 13:14 | Outpatient (CLI) ==
[2017-09-04 13:25] LABS: BILIRUBIN,URINE Negative (NEGATIVE); KETONES,URINE Negative (NEGATIVE); LEUKOCYTE ESTERASE ,URINE Trace (NEGATIVE); NITRITE,URINE Negative (NEGATIVE); PH,URINE 7.5 (5-9); PROTEIN,URINE Negative (NEGATIVE); URINE, BLOOD Trace-intact (NEGATIVE)
[2017-09-04 13:33] LABS: ADD URINE MICROSCOPIC YES
[2017-09-04 13:38] LABS: ALBUMIN 3.6 g/dL (3.4-5.0); ALBUMIN/GLOBULIN RATIO 0.9; ANION GAP 13.3; BILIRUBIN,TOTAL 0.52 mg/dL (0.00-1.20); BUN/CREATININE RATIO 21.42; CHOL/HDL RATIO 3.2 (4.5-5.5); CREATININE 0.84 mg/dL (0.60-1.30); POTASSIUM 4.3 mmol/L (3.5-5.10); TOTAL PROTEIN 7.6 g/dL (5.8-8.1)
[2017-09-04 13:40] LABS: BASOPHILS # (AUTO) 0.1 K/uL (0-0.2); BASOPHILS % (AUTO) 1.4 % (0.0-3.0); EOSINOPHILS # (AUTO) 0.1 K/ul (0.0-0.7); EOSINOPHILS % (AUTO) 2.6 % (0.0-7.0); HEMOGLOBIN 14.2 g/dl (12.0-16.0); IMMATURE GRANULOCYTE % (AUTO) 0.4 % (0.0-5.0); LYMPHOCYTES # (AUTO) 2.1 K/uL (0.60-3.4); LYMPHOCYTES % (AUTO) 41.1 (10.0-50.0); MEAN CORPUSCULAR HEMOGLOBIN 31.1 pg (27.0-31.0); MEAN CORPUSCULAR VOLUME 94.3 fl (81.0-99.0); MONOCYTES # (AUTO) 0.5 K/uL (0.4-2.0); MONOCYTES % (AUTO) 10.5 (0-10); NEUTROPHILS # (AUTO) 2.2 K/ul (2.0-6.9); PLATELET COUNT 290 10^3/uL (140-440); RED BLOOD COUNT 4.56 10^6/ul (4.20-5.40); WHITE BLOOD COUNT 5.04 K/ul (4.6-10.2)
== END 2017-09-04 13:15 | disposition home or self-care (01) ==
LOC: LAB 13:14
PROVIDERS: ATTEND General Practice
DX: I10 Essential (primary) hypertension (principal); Z79.899 Other long term (current) drug therapy
CPT/HCPCS: 36415; 80053; 80061; 81001; 85025

== ENCOUNTER 2017-09-18 11:21 | Observation (INO) ==
[2017-09-18 12:55] VITALS: BMI 26.1
--- NOTE | 2017-09-18 13:57 | CT ---
EXAM: CT sinuses/facial bones without contrast HISTORY: Left submandibular swelling of concern for sialolith COMPARISON: None TECHNIQUE: Serial axial images of the facial bones/sinuses were obtained without IV contrast. These were viewed in coronal, sagittal and axial planes. FINDINGS: The thyroid is heterogeneous. There is a 3 mm calcification in the left submandibular space seen on axial image 16 and coronal imag e 79 may represent a small stone in the left sublingual duct. No definitive abscess or inflammation is identified. No additional stone is identified. The remaining soft tissues are unremarkable. Paranasal sinuses are clear. The orbital globes are normal. Submandibular glands are normal. IMPRESSION: 1. 3 mm calcification in the left submandibular space anteriorly suggestive of a stone in the distal sublingual duct consistent with patient history. There is no focal fluid collection to suggest absc ess and no distinct inflammatory changes present. 2. Heterogeneous appearance of the thyroid.
[2017-09-18] MEDS: ROCEPHIN 1 GM in SODIUM CHLORIDE 50 ML IV SCH (15:00)
[2017-09-18] MEDS ORDERED: LATANOPROST OP SCH (21:00)
[2017-09-18] MEDS ORDERED: NON-FORMULARY MEDICATION (Pantoprazole Sodium [Protonix] 40 MG) PO SCH (21:00)
[2017-09-18] MEDS ORDERED: MULTIVITAMIN PO ONE (21:17)
[2017-09-18] MEDS ORDERED: PROTONIX ONE (21:17)
[2017-09-18] MEDS: NON-FORMULARY MEDICATION (Multivitamin [Multi-Vitamin Daily] 1 EACH) PO SCH (21:24)
[2017-09-19] MEDS: ROCEPHIN 1 GM in SODIUM CHLORIDE 50 ML IV SCH (08:55)
[2017-09-19] MEDS ORDERED: TIMOLOL MALEATE OP SCH (09:00)
[2017-09-19] MEDS: NON-FORMULARY MEDICATION (Multivitamin [Multi-Vitamin Daily] 1 EACH) PO SCH (09:02)
[2017-09-19 10:03] VITALS: BP 145/82; TEMP 98.5
--- NOTE | 2017-10-02 12:11 | SSS ---
CHIEF COMPLAINT: Swelling left side of neck and submandibular area. HISTORY OF PRESENT ILLNESS: The patient noted the swelling on the left submandibular area with no significant pain on Thursday morning, two days prior to presentation to the office and subsequent admission. She noted that the swelling is less in the morning and increases in size towards the end of the day. The patient was seen at the office and indeed had a mass in the submandibular area, which is not remarkably tender and smooth on manual palpation. There are no other significant masses. The patient was felt to have a stone in the salivary gland, sublingual. The patient was advised admission on observation status to make a diagnosis. She also would be started on antibiotics and the obstruction, if indeed is the problem will result to infection if not treated. The patient was initially advised that she probably would need a referral to an Ear, Nose and Throat doctor for further care more so if the diagnosis is confirmed. The patient had a parathyroid adenoma removed some three years ago with elevated serum calcium. PAST HISTORY: She had a previous right nephrectomy for renal cell carcinoma and distal pancreatectomy with frenectomy and also gastrectomy. She was advised that about 70% of her pancreas was removed. She also had a previous cholecystectomy. She has bilateral cataract problems and is scheduled to have surgery beginning early next year. The patient had a colonoscopy two years ago. Endoscopy 14 years ago. FAMILY HISTORY: Father was hypertensive with type II diabetes. Mother was also hypertensive, as well as sister. History of diabetes and CVA on the mother side. 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 She is and resides with her . She stopped smoking since 1964 and does not use any alcoholic beverages. MEDICATIONS: Prior to this admission. Protonix 40 mg daily near bedtime Vitamin B-12 sublingual 2,500 mcg daily Vitamin D-3 2,000 IU daily Magnesium 1,000 mg daily Antivert 25 mg twice a day as needed Latanoprost 2.5 ml one drop both eyes at bedtime Timolol Maleate 15 ml one drop every morning, bilateral DRUG ALLERGIES: The patient is allergic to iodine and Iodide containing products. PHYSICAL EXAMINATION: GENERAL/APPEARANCE: We have a 82 year old female admitted to the hospital on observation because of swelling on the left side of neck and also on the submandibular area. There are no inflammations or ulcerations in the mouth and buccal mucosa and floor. VITALS: Temperature 98.6, pulse 72, blood pressure 164/80, respiratory rate 16, oxygen saturation 97 on room air. 5'4", 152 pounds. HEENT: Head is unremarkable. Face is symmetrical and equal with no facial weakness and no tenderness to palpation in the frontal or maxillary sinus areas. Eyes-the pupils are equal and reactive to light about 3 mm in size. Conjunctivae not pale. Sclera not icteric. Mouth-no inflammation or ulcerations noted. There is no swelling in the buccal mucosa. NECK: The left side of the neck is prominent,mostly in the anterior portion, as well as the submandibular area. Bimanual palpation of the area revealed a mass that is more or less rounded and smooth. It is not significantly tender. No bruit, no rigidity. CHEST: Essentially symmetrical and equal with good expansion and no tenderness. LUNGS: Breath sounds are heard in both sides. No rales or wheezing. HEART: Audible and regular with good tones. No murmurs. ABDOMEN: Flat, soft with no remarkable tenderness. No guarding. Bowel sounds are active. No masses palpable. Scar from previous surgery and no ventral herniation is noted. EXTERNAL GENITALIA: Not examined. PELVIC AND RECTAL: Not performed. LOWER EXTREMITIES: Essentially symmetrical and equal with no significant edema. UPPER EXTREMITIES: Symmetrical and equal. REVIEW OF SYSTEMS: Constitutional: The patient is alert, oriented times four without any fever or chills. 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 No rigidity. VISUAL: Denies any blurred vision, transient loss of vision or double vision. RESPIRATORY: Denies any shortness of breath, cough or hemoptysis. CARDIOVASCULAR: Denies any chest pain or chest tightness or oppression. GI: The patient denies any sore throat or pain on swallowing and no abdominal pain. : Denies any pain, frequency or urgency or urination. MUSCULOSKELETAL: The patient has some joint or muscle pains, but does not require any medication. INTEGUMENT: Denies any rash or pruritus. ENDOCRINE: Negative. HEMATOLOGY: Denies any prolonged bleeding or ecchymosis. PSYCHIATRIC: Affect is normal. ASSESSMENT: 1. MASS, LEFT SUBMANDIBULAR AREA PROBABLY SECONDARY TO SALIVARY GLAND OBSTRUCTION BY A STONE PLAN: 1. Admit for observation for diagnosis and treatment. HOSPITAL COURSE: The patient while in the hospital had the following testing done consisting of CBC with normal WBC, normal hemoglobin and hematocrit and platelet count. CMP is normal and the procalcitonin is less than 0.05. Urinalysis normal. The patient had maxillofacial CT without contrast which showed a 3 mm calcification in the left submandibular area suggestive of stone. It is located in the distal sublingual duct. No focal collection of fluid to suggest an abscess. The patient while in the hospital remained alert, oriented times four, not dyspneic, nor tachypneic without any significant pain. She remained afebrile throughout her hospital stay until her discharge. Her blood pressure had fluctuated to an acceptable level, 140/82 to hypertensive levels. The patient claims that she always has a blood pressure of about 130 systolic at home. 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 The patient is reliable. Her oxygen saturation had remained between 97 and 99. The patient was given IV Rocephin 2 grams beginning yesterday and was given a dose this morning also. The patient at the time of discharge was alert, ambulatory with movement of all extremities and no significant pain. VITAL SIGNS: The vital signs at 10 o'clock on 09/19/17 showed a temperature of 98.5, pulse rate of 79, blood pressure 145/82, respiratory rate 16, oxygen saturation 97. NECK: The mass in the neck is smaller. There are no other masses noted. LUNGS: The lungs remained clear to auscultation. HEART: Audible and regular with good tones. ABDOMEN: Unremarkable. LOWER EXTREMITIES: She denies any tenderness or pain in the calf muscles. She received her Rocephin at 10 a.m. This patient is then discharged and to be referred to Ear, Nose and Throat this coming Thursday. She had been to Dr. Boyd and she had surgery of the parathyroid by Dr. Boyd. I told her that I will call Dr. Boyd Thursday morning for consultation. She is not given any follow up at the office, but was advised that if she would have exacerbation of the problem that she should go to the emergency room if she could not wait until Thursday at the office. The patient, as well as the , showed very good understanding. FINAL DIAGNOSIS: 1. OBSTRUCTION OF THE SUBLINGUAL GLAND SECONDARY TO STONE 2. HISTORY OF RIGHT RENAL CARCINOMA, OPERATED. 3. HISTORY OF DISTAL PANCREATIC CARCINOMA, OPERATED 4. HISTORY OF CHOLECYSTECTOMY 5. HISTORY OF PARATHYROID ADENOMA EXCISION 6. HISTORY OF BILATERAL CATARACT MTDD
== END 2017-09-19 14:25 | disposition home or self-care (01) ==
LOC: MEDSURG A 11:21
PROVIDERS: ADMIT General Practice; ATTEND General Practice
DX: K11.5 Sialolithiasis (principal); K11.8 Other diseases of salivary glands; Z85.528 Personal history of other malignant neoplasm of kidney; Z85.07 Personal history of malignant neoplasm of pancreas; Z79.899 Other long term (current) drug therapy
CPT/HCPCS: 36415; 80053; 81001; 84145; 85025; 87040

== ENCOUNTER 2018-03-08 11:42 | Outpatient (CLI) | END 2018-03-08 11:43 | disposition home or self-care (01) | LOC: FCC-LAB 11:42 | PROVIDERS: ATTEND General Practice | DX: C25.9 Malignant neoplasm of pancreas, unspecified (principal); C64.1 Malignant neoplasm of right kidney, except renal pelvis; K21.9 Gastro-esophageal reflux disease without esophagitis; D35.1 Benign neoplasm of parathyroid gland; I10 Essential (primary) hypertension; Z79.899 Other long term (current) drug therapy | CPT/HCPCS: 36415; 80053; 80061; 81001; 85025; 87086 ==

== ENCOUNTER 2018-03-12 10:52 | Outpatient (CLI) ==
--- NOTE | 2018-03-12 12:07 | CT ---
EXAM: CT scan brain without contrast HISTORY: Forgetfulness tremors COMPARISON: None. FINDINGS: Contiguous axial images obtained from the skull base to the convexities without contrast u tilizing 5-mm collimation. Sagittal and coronal reconstructions were imaged and reviewed. The ventri cles and CSF spaces are prominent compatible with age appropriate atrophy. There is mild periventric ular hypodensity noted compatible with chronic microvascular disease. . There is a remote lacunar in farct within the left caudate head The visualized paranasal sinuses and mastoid air cells are clear. Atherosclerotic changes are seen involving the bilateral vertebral and cavernous internal carotid ar teries. IMPRESSION: Age appropriate atrophy with chronic microvascular disease. ASVD
--- NOTE | 2018-03-12 12:16 | CT ---
EXAM: CT scan thorax without contrast HISTORY: Pancreatic/renal cell CA COMPARISON: None. FINDINGS: It was axial images obtained through the thorax without contrast utilizing 5-mm collimatio n. Sagittal coronal reconstructions were imaged and reviewed.. The thoracic inlet is unremarkable. The heart is normal in size without pericardial effusion. There is no evidence of mediastinal or ax illary lymphadenopathy. There is no evaluation of hilar structures without contrast. Calcified lymp h nodes seen in the left hilum.. There are emphysematous changes.. Pneumopleural scarring is noted both apices. Scattered areas of scarring is seen within the right upper lobe. They are benign granu lomatous changes. There is no evidence of infiltrate or effusion. Postoperative changes are seen wit hin the visualized upper abdomen consistent with prior pancreatectomy, partial gastrectomy , splenect cece and right nephrectomy.. There is nonobstructive left-sided nephrolithiasis.. Bone windows revea ls degenerative changes within the mid-lower thoracic spine. IMPRESSION: Emphysematous changes with biapical pneumopleural scarring and right upper lobe scarring.. No acute intrathoracic findings.. Extensive postoperative changes within the visualized upper abdomen
--- NOTE | 2018-03-12 13:06 | CT ---
EXAM: CT Abdomen without contrast. CT Pelvis without contrast. HISTORY: Malignant neoplasm of the pancreas. Right renal cell carcinoma. Left lower quadrant pain. COMPARISON: 07/22/2010, 05/22/2009. TECHNIQUE: Multiple axial images of the abdomen and pelvis were obtained without intravenous contras t. Images were reformatted in the sagittal and coronal plane. FINDINGS: Please note that evaluation of the abdominal and pelvic structures is limited due to lack of intravenous contrast. Lung bases are clear. No acute osseous abnormality identified. Gallbladder, pancreas, spleen and right kidney are absent. Exophytic lesion of the left renal upper pole measures 1.3 x 1.5 x 1.3 cm and contains coarse calcifications which is stable since 2008. Nume shireen nonobstructing left renal calculi are present measuring up to 0.9 centimeters diameter. No hydr onephrosis identified. Adrenal glands appear normal. The bowel is normal in course and caliber without evidence for obstruction or inflammatory process. Colonic diverticulosis noted. The appendix is normal. Uterus demonstrates normal contour. Urinary bladder is unremarkable. Phleboliths present in the pelvis. Atherosclerotic calcifications present. No free fluid or free air identified. There are small mesenteric lymph nodes, best seen on axial i mages 42 through 45 which are stable. IMPRESSION: 1. No acute abnormality in the abdomen or pelvis. 2. Stable complex left renal mass since 2008. Left nephrolithiasis. 3. Diverticulosis.
== END 2018-03-12 10:53 | disposition home or self-care (01) ==
LOC: RAD 10:52
PROVIDERS: ATTEND General Practice
DX: R68.89 Other general symptoms and signs (principal); R25.1 Tremor, unspecified; R74.8 Abnormal levels of other serum enzymes; C64.1 Malignant neoplasm of right kidney, except renal pelvis; C25.9 Malignant neoplasm of pancreas, unspecified; R10.9 Unspecified abdominal pain

== ENCOUNTER 2018-05-24 09:26 | Outpatient (CLI) | END 2018-05-24 09:27 | disposition home or self-care (01) | LOC: LAB 09:26 | PROVIDERS: ATTEND Physician Assistant | DX: E04.1 Nontoxic single thyroid nodule (principal); R53.82 Chronic fatigue, unspecified | CPT/HCPCS: 36415; 84443 ==

== ENCOUNTER 2018-07-23 11:50 | Outpatient (CLI) | payer OTHER | END 2018-07-23 11:51 | disposition home or self-care (01) | LOC: FCC-LAB 11:50 | PROVIDERS: ATTEND General Practice | DX: C64.1 Malignant neoplasm of right kidney, except renal pelvis (principal); D35.1 Benign neoplasm of parathyroid gland; C25.9 Malignant neoplasm of pancreas, unspecified; R10.819 Abdominal tenderness, unspecified site; I10 Essential (primary) hypertension; K21.9 Gastro-esophageal reflux disease without esophagitis; Z79.899 Other long term (current) drug therapy | CPT/HCPCS: 36415; 80053; 80061; 81001; 85025 ==

== ENCOUNTER 2018-10-18 06:56 | Day surgery (SDC) ==
[2018-10-18] MEDS: CYCLOGYL 2% OPTH OP PRN ×3 (07:10→07:20)
[2018-10-18] MEDS: AK-DILATE 10% OPTH SOL OP PRN ×3 (07:10→07:20)
[2018-10-18] MEDS: KETOROLAC 0.5% OPTH SOL OP PRN ×5 (07:10→08:52)
[2018-10-18] MEDS: TETRACAINE 0.5% UNIT-DOSE OP PRN ×5 (07:10→08:27)
[2018-10-18] MEDS ORDERED: DIAMOX PO STA (07:19)
[2018-10-18] MEDS ORDERED: OCUSOFT LID SCRUB PLUS TP PRN (07:19)
[2018-10-18 07:39] VITALS: TEMP 97.4
[2018-10-18] MEDS ORDERED: ROBINOL ONE (08:25)
[2018-10-18] MEDS ORDERED: SUBLIMAZE ONE (08:25)
[2018-10-18] MEDS ORDERED: VERSED ONE (08:25)
[2018-10-18] MEDS ORDERED: LIDOCAINE HCL 1% SDV INJ PRN (08:40)
[2018-10-18] MEDS ORDERED: DIAMOX ONE (09:41)
[2018-10-18 12:34] VITALS: BP 125/63
--- NOTE | 2018-10-19 09:47 | OP ---
PREOPERATIVE DIAGNOSIS: BRUNESCENT CATARACT, RIGHT EYE. POSTOPERATIVE DIAGNOSIS: SAME. OPERATION PHACOEMULSIFICATION ASPIRATION OF CATARACT RIGHT EYE. PLACEMENT OF POSTERIOR CHAMBER LENS. PHACO TIME 51.3% SECONDS AT 11% POWER. LENS MODEL CORNEL [id number]. DIOPTER +24.0D. TECHNIQUE: CLEAR CORNEA. ANESTHESIA: TOPICAL ANESTHESIA W/ANESTHESIA MONITORING. OPERATIVE REPORT: Topical anesthesia consisting of Tetracaine was applied to the cornea and Xylocaine Methyl Paraben free of MFP was injected intracamerally into the anterior chamber. The patient was then brought into the operating room , prepped and draped in the usual ophthalmic manner. A lid speculum was placed and the operating microscope was used. A paracentesis was made at the 3 o' clock position. A clear corneal incision was made just out to the limbus. The anterior chamber was entered just inside the clear cornea. Viscoelastic was injected into the anterior chamber. A capsulotomy was performed with a bent # 27 gauge needle. Phacoemulsification was then performed in the posterior chamber. After completion of the phacoemulsification, residual cortical material was aspirated with the irrigation-aspiration system. The posterior capsule was polished. Viscoelastic was injected into the anterior and posterior chambers to inflate the capsular bag. Lens were placed via an Unfolder system and stabilized in the bag. Viscoelastic was removed from the anterior chamber. The wound was checked for any leakage. The four sponges were removed from the fornix. Topical antibiotic steroid and nonsteroidal drops were also applied to the cornea. A Osorio shield was applied. The patient left the operating room in good condition without any complications. INTRAOPERATIVE MEDICATIONS: Xylocaine Methyl Paraben Free MPF MTDD
== END 2018-10-18 09:40 | disposition home or self-care (01) ==
LOC: SURG 06:56
PROVIDERS: ATTEND Ophthalmology
DX: H25.13 Age-related nuclear cataract, bilateral (principal); H25.013 Cortical age-related cataract, bilateral

== ENCOUNTER 2018-11-08 09:52 | Emergency (ER) | payer OTHER ==
[2018-11-08 09:56] VITALS: BP 192/98; TEMP 96.7; BMI 27.1
--- NOTE | 2018-11-08 10:32 | ED.PDOC ---
General ED Provider: Dr. SUNDAY MESSINA Chief Complaint: Hypertension Stated Complaint: hypertension systolic blood pressure reached 200 pt took her own meds came to E.R. free of chest pain Time Seen by Physician: 10:00 (NO CHEST PAIN) Mode of Arrival: Walk-In Information Source: Patient Exam Limitations: No limitations Primary Care Provider[facility] Nursing and Triage Documentation Reviewed and Agree: Yes Does patient meet sepsis criteria?: No (TOOK HER OWN MEDS P.T.A.) System Inflammatory Response Syndrome: Not Applicable Sepsis Protocol: For patient's 13 years and over: Temp is 96.8 and below OR 101 and greater Pulse >90 BPM Resp >20/minute Acutely Altered Mental Status Are patient's symptoms suggestive of a new infection, such as: -Pneumonia -Skin, Soft Tissue -Endocarditis -UTI -Bone, Joint Infection -Implantable Device -Acute Abdominal Infection -Wound Infection -Meningitis -Blood Stream Catheter Infection -Unknown Cardiovascular Complaint Exam - Hypertension Complaint/Exam Onset/Duration: THIS AM Symptoms Are: Resolved (ON ARRIVAL SBP AT 170/95 AND HEAR RATE OF 67 PULSE OX 97 % NO CHEST PAIN NO NEURO ISSUES) Reported B/P Prior to Arrival: 200 SYSTOLIC Aggravating: Reports: None Alleviating: Reports: None Associated Signs and Symptoms: Denies: Chest pain, Vision changes, Anxiety, Recent stress, Headache, Numbness, Tingling, Weakness, Dizziness, Short of air, Swelling Related History: Reports: Similar episode Related Surgical History: Reports: None Cardiac Risk Factors: Reports: Hypertension Recent Change in Medications: No A/V Nicking: No Papilledema Present: No JVD Present: No Carotid Bruit Present: No Femoral Pulses Bounding: No Differential Diagnoses: Hypertension Quality Indicator For Non-Traumatic Chest Pain/Syncope: EKG Performed Review of Systems - Review Of Systems Constitutional: Reports: No symptoms Eyes: Reports: No symptoms Ears, Nose, Mouth, Throat: Reports: No symptoms Respiratory: Reports: No symptoms Cardiac: Reports: No symptoms GI: Reports: No symptoms : Reports: No symptoms Musculoskeletal: Reports: No symptoms Skin: Reports: No symptoms Neurological: Reports: No symptoms Endocrine: Reports: No symptoms Hematologic/Lymphatic: Reports: No symptoms All Other Systems: Reviewed and Negative Past Medical History - Past Medical History Previously Healthy: Yes Endocrine: Reports: None Cardiovascular: Reports: None Respiratory: Reports: None Hematological: Reports: None Gastrointestinal: Reports: GERD, Other. Denies: Gallstones, Pancreatitis Genitourinary: Reports: Other Neuro/Psych: Reports: None Musculoskeletal: Reports: None Cancer: Reports: Other (renal cancer, pancreatic cancer x2) Last Menstrual Period: n/a - Surgical History General Surgical History: Reports: Other (NEPHRECTOMY, 70% PANCREAS, GB,SPEEN AND PART OF STOMACH REMOVED.FOR CANCER) - Family History Family History: Reports: Unknown - Social History Smoking Status: Former smoker Hx Substance Use: No Alcohol Screening: None Physical Exam - Physical Exam Appearance: Well-appearing, No pain distress, Well-nourished Eyes: KADE, EOMI, Conjunctiva clear ENT: Ears normal, Nose normal, Oropharynx normal Respiratory: Airway patent, Breath sounds clear, Breath sounds equal, Respirations nonlabored Cardiovascular: RRR, Pulses normal, No rub, No murmur GI/: Soft, Nontender, No masses, Bowel sounds normal, No Organomegaly Musculoskeletal: Normal strength, ROM intact, No edema, No calf tenderness Skin: Warm, Dry, Normal color Neurological: Sensation intact, Motor intact, Reflexes intact, Cranial nerves intact, Alert, Oriented Psychiatric: Affect appropriate, Mood appropriate Interpretation - [employer] Head Rate: Normal Rhythm: Sinus Ectopy: None - EKG Interpretation Rate: Normal Rhythm: Sinus Ectopy: None P[place]: NL ST Segment: Normal Re-Evaluation - Re-Evaluation Time of Re-Evaluation: 10:33 (FREE OF CHEST PAIN) Status: Improved Vital Signs Stable: Yes Pain Level: 0 Appearance: NAD Lungs: Clear Skin: Warm and Dry Neuro: Alert and Oriented X3 CV: RRR Additional Comments: SBP 177 Critical Care Note - Critical Care Note Total Time (mins): 0 Course - Course Hematology/Chemistry: 11/08/18 10:23 Orders, Labs, Meds: Lab Review 11/08/18 10:23 WBC 5.77 RBC 4.12 L Hgb 11.6 L Hct 36.0 L MCV 87.4 MCH 28.2 MCHC 32.2 RDW Coeff of Fatuma 15.6 H Plt Count 303 Immature Gran % (Auto) 0.2 Neut % (Auto) 49.8 Lymph % (Auto) 37.8 [place] % (Auto) 9.4 Eos % (Auto) 2.1 Baso % (Auto) 0.7 Immature Gran # (Auto) 0.0 Neut # (Auto) 2.9 Lymph # (Auto) 2.2 [place] # (Auto) 0.5 Eos # (Auto) 0.1 Baso # (Auto) 0.0 Orders Category Date Time Status EKG-(ED ONLY) Stat CARDIO 11/08/18 10:06 Ordered CBC W/ AUTO DIFF Stat LAB 11/08/18 10:23 Completed COMPREHENSIVE METABOLIC PANEL Stat LAB 11/08/18 10:23 Received CREATINE KINASE Stat LAB 11/08/18 10:23 Received FLU A/B MOLECULAR Stat LAB 11/08/18 10:20 Received TROPONIN I Stat LAB 11/08/18 10:23 Received Vital Signs: Temp Pulse Resp BP Pulse Ox 11/08/18 09:52 96.7 F L 88 20 192/98 H 95 BETH Risk Score BETH Risk Score: Risk Score Odds of by 30D 0 0.1 (0.1-0.2) 1 0.3 (0.2-0.3) 2 0.4 (0.3-0.5) 3 0.7 (0.6-0.9) 4 1.2 (1.0-1.5) 5 2.2 (1.9-2.6) 6 3.0 (2.5-3.6) 7 4.8 (3.8-6.1) Departure - Departure Time of Disposition: 11:45 Disposition: HOME SELF-CARE Discharge Problem: Hypertension Qualifiers: Hypertension type: unspecified Qualified Code(s): I10 - Essential (primary) hypertension Anemia Qualifiers: Anemia type: unspecified type Qualified Code(s): D64.9 - Anemia, unspecified Instructions: Hypertension (ED), Anemia (ED) Condition: Good Pt referred to PMD for follow-up: Yes IPMP verified?: No Additional Instructions: Please call your Family Physician as soon as possible to schedule a follow-up appointment.IF YOUR BLOOD PRESSURE REMAINS HIGH OR YOU HAVE CHEST PAIN SEE YOUR DOCTOR OR RETURN SOON POSSIBLE Allergies/Adverse Reactions: Allergies Iodine and Iodide Containing Produc Adverse Reaction (Mild, Verified 11/08/18 09 :54) Hives Home Medications: Ambulatory Orders Cholecalciferol (Vitamin D3) [Vitamin D3] 3,000 unit PO DAILY 07/30/15 Cyanocobalamin (Vitamin B-12) [B-12] 2,500 mcg SL BEDTIME 07/30/15 Multivitamin [Multi-Vitamin Daily] 1 each PO DAILY 07/30/15 Pantoprazole Sodium [Protonix] 40 mg PO BEDTIME 07/30/15 Bisoprolol/Hydrochlorothiazide [Bisoprolol-Hctz 2.5-6.25 mg Tb] 1 tab PO DAILY 10/14/18 Disposition Discussed With: Patient
== END 2018-11-08 11:32 | disposition home or self-care (01) ==
LOC: ED 09:52
DX: I10 Essential (primary) hypertension (principal); D64.9 Anemia, unspecified; Z85.528 Personal history of other malignant neoplasm of kidney; Z85.07 Personal history of malignant neoplasm of pancreas
CPT/HCPCS: 36415; 80053; 82550; 84484; 85025; 87502; 93005; 93010; 99283

== ENCOUNTER 2018-11-15 07:34 | Day surgery (SDC) | payer OTHER ==
[2018-11-15] MEDS ORDERED: LIDOCAINE HCL 1% SDV INJ PRN (08:00)
[2018-11-15] MEDS ORDERED: BSS WITH EPINEPHRINE OP ONE (08:00)
[2018-11-15] MEDS ORDERED: BETADINE OPTH PREP OP ONE (08:00)
[2018-11-15] MEDS: TETRACAINE 0.5% UNIT-DOSE OP PRN ×5 (09:00→10:36)
[2018-11-15] MEDS: OCUFEN 0.03% OPTH SOL OP PRN ×3 (09:00→09:30)
[2018-11-15] MEDS: AK-DILATE 10% OPTH SOL OP PRN ×3 (09:00→09:10)
[2018-11-15] MEDS: CYCLOGYL 2% OPTH OP PRN ×3 (09:00→09:10)
[2018-11-15] MEDS ORDERED: DIAMOX PO STA ×2 (09:20→13:49)
[2018-11-15] MEDS ORDERED: VERSED ONE (10:22)
[2018-11-15] MEDS ORDERED: LIDOCAINE 2%-EPI 1:100,000 20 ML MDV INJ ONE (10:42)
[2018-11-15] MEDS ORDERED: ERYTHROMYCIN OP ONE (10:55)
[2018-11-15] MEDS ORDERED: DIAMOX ONE (11:45)
[2018-11-15 14:14] VITALS: BP 132/78
--- NOTE | 2018-11-16 14:37 | OP ---
PREOPERATIVE DIAGNOSIS: 1. NUCLEAR CATARACT LEFT EYE. 2. SMALL LOWER LID LESION LEFT EYE. POSTOPERATIVE DIAGNOSIS: SAME. OPERATION PHACOEMULSIFICATION ASPIRATION OF CATARACT LEFT EYE. PLACEMENT OF POSTERIOR CHAMBER LENS. REMOVAL LESION (PAPILLA) LEFT LOWER LID. PHACO TIME 1: 23.2 SECONDS AT 10.0% POWER. LENS MODEL TECKESHIA [id number]. DIOPTER +25.0D. TECHNIQUE: CLEAR CORNEA. ANESTHESIA: TOPICAL ANESTHESIA W/ANESTHESIA MONITORING. OPERATIVE REPORT: Topical anesthesia consisting of Tetracaine was applied to the cornea and Xylocaine Methyl Paraben free of MFP was injected intracamerally into the anterior chamber. The patient was then brought into the operating room , prepped and draped in the usual ophthalmic manner. A lid speculum was placed and the operating microscope was used. A paracentesis was made at the 3 o' clock position. A clear corneal incision was made just out to the limbus. The anterior chamber was entered just inside the clear cornea. Viscoelastic was injected into the anterior chamber. A capsulotomy was performed with a bent # 27 gauge needle. Phacoemulsification was then performed in the posterior chamber. After completion of the phacoemulsification, residual cortical material was aspirated with the irrigation-aspiration system. The posterior capsule was polished. Viscoelastic was injected into the anterior and posterior chambers to inflate the capsular bag. Lens were placed via an Unfolder system and stabilized in the bag. Viscoelastic was removed from the anterior chamber. The wound was checked for any leakage. The four sponges were removed from the fornix. Topical antibiotic steroid and nonsteroidal drops were also applied to the cornea. A Osorio shield was applied. The patient left the operating room in good condition without any complications. ADDENDUM: Papillomatous lesion left lower lid. Local anesthetic was infiltrated near the lesion. The lesion was excised and sent to pathology. The base was cauterized and ointment was applied. INTRAOPERATIVE MEDICATIONS: Xylocaine Methyl Paraben Free MPF MTDD
== END 2018-11-15 11:45 | disposition home or self-care (01) ==
LOC: SURG 07:34
PROVIDERS: ATTEND Ophthalmology
DX: H25.13 Age-related nuclear cataract, bilateral (principal); Z96.1 Presence of intraocular lens; D49.2 Neoplasm of unspecified behavior of bone, soft tissue, and skin; L57.8 Other skin changes due to chronic exposure to nonionizing radiation

== ENCOUNTER 2019-02-07 08:30 | Outpatient (CLI) | payer OTHER | END 2019-02-07 08:31 | disposition home or self-care (01) | LOC: RHC-LAB 08:30 | PROVIDERS: ATTEND General Practice | DX: K21.9 Gastro-esophageal reflux disease without esophagitis (principal); I10 Essential (primary) hypertension; Z79.899 Other long term (current) drug therapy | CPT/HCPCS: 36415; 80053; 80061; 81001; 85025 ==

== ENCOUNTER 2019-02-11 11:23 | Outpatient (CLI) ==
--- NOTE | 2019-02-11 14:39 | CT ---
EXAM: CT of the abdomen pelvis without contrast History: Back pain and bilateral hip pain, history of pancreatic cancer. Comparison: CT abdomen pelvis 03/12/2018 Technique: Multiplanar CT images through the mouth and pelvis were obtained without the administrati on of IV contrast Findings: Lung bases are free of consolidation. No acute osseous abnormalities. Mild to moderate a rthritis of bilateral hip joints. Moderate to severe degenerative disc disease at L5-S1. Moderate t o severe degenerative disc disease within the lower thoracic spine and upper lumbar spine. Postsurgical changes again seen within the abdomen. Status post splenectomy. Atherosclerotic vascul ar calcifications. Most of the pancreas has been removed. No peripancreatic inflammation. Status p ost right nephrectomy. Multiple calculi are again seen within the left kidney with the largest measu ring 6 mm. Stable 1.3 cm benign cyst within the superior pole of the left kidney containing calcifie d hargrove. No left perinephric inflammation. No bowel obstruction. No free air and no ascites. No b ladder wall thickening. Atrophic uterus. Colonic diverticulosis. No perirectal inflammation. Mode rate colonic stool. Evaluation for lymph nodes is limited due to the lack of contrast administration . No pathologically enlarged lymph nodes are seen. The appendix is normal. Atherosclerotic vascula r calcifications. Impression: 1. No acute intra-abdominal or pelvic process. 2. Colonic diverticulosis. 3. Nonobstructing left nephrolithiasis. 4. Stable small complicated cyst within the left kidney is benign. 5. No evidence for metastatic disease
== END 2019-02-11 11:24 | disposition home or self-care (01) ==
LOC: RAD 11:23
PROVIDERS: ATTEND General Practice
DX: M25.559 Pain in unspecified hip (principal); R10.2 Pelvic and perineal pain

== ENCOUNTER 2019-03-01 13:42 | Outpatient (CLI) ==
--- NOTE | 2019-03-01 14:37 | DI ---
EXAM: Lumbar spine five views, including oblique views HISTORY: Other intervertebral disc degeneration, lumbar region COMPARISON: 07/02/2012 TECHNIQUE: Five views lumbar spine were performed, including oblique views FINDINGS: Sacroiliac joints intact. Sacral arcuate intact. Mild rightward curvature lower thoracic and lumbar spine. Several calcifications project over the left kidney and measure up to 8 mm. Surg ical clips in the right mid abdomen. Vertebral bodies normal height. No fracture. No subluxation. Multilevel marginal osteophyte formation. Multilevel intervertebral disc space narrowing, greatest a t L5-S1 where there is severe intervertebral disc space narrowing on the right. Multilevel facet art hrosis IMPRESSION: 1. No fracture or subluxation. 2. Chronic discogenic degenerative disease and facet arthrosis. 3. Left nephrolithiasis.
== END 2019-03-01 13:43 | disposition home or self-care (01) ==
LOC: RAD 13:42
PROVIDERS: ATTEND General Practice
DX: M51.36 Other intervertebral disc degeneration, lumbar region (principal)

== ENCOUNTER 2019-03-03 10:28 | Outpatient (CLI) | payer OTHER | END 2019-03-03 10:29 | disposition home or self-care (01) | LOC: LAB 10:28 | PROVIDERS: ATTEND General Practice | DX: R74.8 Abnormal levels of other serum enzymes (principal) | CPT/HCPCS: 36415; 82977 ==

== ENCOUNTER 2019-03-08 09:42 | Outpatient (CLI) | payer OTHER ==
--- NOTE | 2019-03-08 10:06 | DI ---
EXAM: Single view of the pelvis and two views of nine hips. Colon on Findings: Cholecystectomy clips. Limits. No acute fracture or dislocation. Mild to moderate narro wing lateral hip joints with small osteophytes. Moderate to severe degenerative disc disease at L5-S 1 and worse on the right side. Impression: 1. No acute osseous abnormality. 2. 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 3. Moderate to severe degenerative disc disease at L5-S1 and worse on the right side.
== END 2019-03-08 09:43 | disposition home or self-care (01) ==
LOC: RAD 09:42
PROVIDERS: ATTEND General Practice
DX: M25.559 Pain in unspecified hip (principal); M51.36 Other intervertebral disc degeneration, lumbar region

== ENCOUNTER 2019-05-26 13:00 | Outpatient (RCR) | payer OTHER ==
--- NOTE | 2019-05-13 16:05 | RS.OPPTEV2 ---
Date of Note: 05/13/19 Visit #: 1 Number of visits approved by Insurance: n/a Date of Evaluation: 05/13/19 Payer Source: MEDICARE Surgery Performed?: No Treatment Diagnosis: low back pain History of Condition/Mechanism of Injury:: Pain began approx 1 year ago. No definite injury. Prior Level of Function.....Patient was independent with: ADL's, Self Care, Caregiving, Ambulation/Mobility, Community Integration/Access Functional Limitations: Standing, Bending, Squatting, Ambulation, Community Access/Integration Current Subjective/complaints:: pt states that she is currently having LBP which has been gradually getting worse the last few months. States pain is worse with standing or prolonged walking. Treatment Side (optional): N/A *Precautions: pt with history of kidney and pancreatic CA Medical History Medical History: Hypertension, Cancer (kidney and pancreatic CA) Surgical History Comments:: thyroid surgery, part of pancreas removed. Smoking Status: Current some day smoker Hx Home Medications: protonix, B12, vitamin D3, and a blood pressure pill Patient's Goals: decrease low back pain Pain Assessment - Pain Description Pain Location: lower lumbar/sacral area Current Pain Intensity: 5 Functional Outcome Measure Oswestry LBP: 22 - G Codes & Severity Modifier G Codes & Modifier: n/a Source of G Code score: n/a Observation - Observation Posture: Forward Head, Rounded Shoulders, Increased Thoracic Kyphosis, Decreased Lumbar Lordosis Handedness: Right Gait - Gait Pattern General Gait Pattern Observation: No Deviations/Normal General Range of Motion: BUE WFL's. BLE WFL's Muscle Strength: BUE 5/5. BLE hip flex 4/5, knee flex/ext 4+/5, ankle DF/PF 4+/ 5 - ROM Lumbar Flexion: Hand reach to Mid-Shins Sidebending to Left: Reach to Lateral Joint Line Sidebending to Right: Reach to Lateral Joint Line Lumbar Spine ROM Limitations: Soft Tissue Tightness, Muscle Weakness, Pain Comments: pain with ext as well as lat side bending - Strength Trunk Extension: 4- Good- Trunk Flexion: 4- Good- Trunk Lateral Flexion: 3- Fair- Trunk Rotation: 3- Fair- Comments: pt presents with tight hamstrings BLE L worse than R. Tight piriformis BLE L worse than R. pt also with + hip scour test - Special Tests RONY Test: Positive Right SLR Test: Positive Left, Positive Right SI Joint Compression: Positive Palpation Palpation Findings: Tenderness, Trigger Point Comments:: pt presents with tenderness to palpation in lower lumbar/sacral area with trigger points noted at R distal lat border of sacrum as well as R SI joint Sensation - Sensation Right Upper Extremity: Intact/Normal Left Upper Extremity: Intact/Normal Right Lower Extremity: Intact/Normal Left Lower Extremity: Intact/Normal Balance - Sitting Balance Static Sitting Balance: Normal Dynamic Sitting Balance: Normal - Standing Balance Static Standing Balance: Normal Dynamic Standing Balance: Normal - Heat/Cryotherapy Treatment: Hot Pack Comments:: lumbar/sacral area Interventions - Exercise/Activities/Manual Therapy Exercises/Activities: pt received gentle hamstring stretch, piriformis stretch, as well as isometric hip add, resisted hip abd with green theraband. Manual Therapy: n/a HOME EXERCISE PROGRAM: pt given written HEP including: piriformis stretch, hamstring stretch, isometric hip add, resisted hip abd with green theraband. - Charges Timed Code Treatment Minutes: 43 Total Treatment Time: 59 Procedures billed for this date of service:: eval med, EVALUATION COMPLEXITY LEVEL EVALUATION COMPLEXITY LEVEL: HISTORY: Medium, EXAM OF BODY SYSTEMS: Medium, CLINICAL PRESENTATION: Medium, CLINICAL DECISION MAKING: Medium Assessment Assessment: pt presents with pain in lower lumbar/sacral area with trigger points noted at area of R SI joint. pt with difficulty standing/walking for prolonged periods of time due to pain. pt with decreased flexibility in hamstring and piriformis. Feel pt would benefit from skilled PT for therex for stretching, strengthening as well as modalities to decrease pain and improve mobility. Patient Education: Home Exercise Program, Education of Plan of Care Rehab Potential: Good Short Term Goals Goal #1: pt independent with initial HEP Goal to be met by: 06/03/19 Goal #2: pt rate LBP pain < 5/10 with activity Goal to be met by: 06/03/19 Goal #3: Improve flexibilty B LE hamstrings WFL's Goal to be met by: 06/03/19 Goal #4: pt able to stand long enough to do dishes w less pain Goal to be met by: 06/03/19 Help Aid Goals Goal #1: pt able to perform normal household duties w less pain Goal to be met by: 06/24/19 Goal #2: pt rate pain < 3/10 Goal to be met by: 06/24/19 Goal #3: Improve oswestry score to < 20 Goal to be met by: 06/24/19 Plan - Treatment to be Provided Procedures: Therapeutic Exercises, Therapeutic Activity, Manual Therapy, Massage , Patient Education Modalities: Electrical Stimulation, Ultrasound/Phonophoresis, Class IV Laser, Cryotherapy, Hot Packs, Mechanical Traction - Treatment Plan Frequency: 2 X week Duration: 6 weeks Dates of Help Aid Goals: 06/24/19 Expiration date of current Insurance Approval:: n/a - Treatment Code (1) Low back pain Code(s): M54.5 - LOW BACK PAIN Qualifiers: Chronicity: unspecified Back pain laterality: unspecified Sciatica presence: unspecified whether sciatica present Qualified Code(s): M54.5 - Low back pain (2) Sacroiliac dysfunction Code(s): M53.3 - SACROCOCCYGEAL DISORDERS, NOT ELSEWHERE CLASSIFIED
--- NOTE | 2019-05-17 11:05 | RS.OPPTDN ---
Subjective Date of Note: 05/17/19 Visit #: 2 Number of visits approved by Insurance: na Date of Evaluation: 05/13/19 Payer Source: MEDICARE Treatment Diagnosis: low back pain Current Subjective/complaints:: Patient reports her pain moves around ,but has no sciatica or leg pain today. *Precautions: pt with history of kidney and pancreatic CA Pain Assessment - Pain Description Pain Location: lumbar/SI Pain Description: Tightness, Dull, Aching Current Pain Intensity: 4-5/10 - Heat/Cryotherapy Treatment: Hot Pack (20 mins. prior to exercises) Interventions - Exercise/Activities/Manual Therapy Exercises/Activities: 30 mins. total of pelvic tilts,SKTC,DKTC,piriformis stretches,90/90 hamstring stretches.SI muscle energy for alignment. Total minutes of Exercise: 30 Manual Therapy: n/a Total minutes of Manual Therapy: 0 HOME EXERCISE PROGRAM: pt given written HEP including: piriformis stretch, hamstring stretch, isometric hip add, resisted hip abd with green theraband. - Charges Timed Code Treatment Minutes: 30 Total Treatment Time: 50 Procedures billed for this date of service:: hp,ex 2 Assessment: Patient reports slight elevation in the R SI region with exercises today.She responds well to stretches in the hamstrings and both piriformis.The pelvic tilt elicits pain with return motion ,but lessened as the reps. progressed.She is highly motivated to improve. Patient Education: Education of diagnosis, Body/Joint mechanics, Home Exercise Program, Home Safety, Activity Modification, Education of Plan of Care Patient demonstrates compliance with HEP?: Yes Short Term Goals Goal #1: pt independent with initial HEP Goal to be met by: 06/03/19 Progress towards Goal:: Progressing Goal #2: pt rate LBP pain < 5/10 with activity Goal to be met by: 06/03/19 Progress towards Goal:: Progressing Goal #3: Improve flexibilty B LE hamstrings WFL's Goal to be met by: 06/03/19 Progress towards Goal:: Progressing Goal #4: pt able to stand long enough to do dishes w less pain Goal to be met by: 06/03/19 [employer] Goals Goal #1: pt able to perform normal household duties w less pain Goal to be met by: 06/24/19 Goal #2: pt rate pain < 3/10 Goal to be met by: 06/24/19 Goal #3: Improve oswestry score to < 20 Goal to be met by: 06/24/19 Plan Dates of Residential Goals: 06/24/19 Expiration date of current Insurance Approval:: 06/24/19 PLAN: Cont. skilled PT to reduce /eliminate LBP,educate patient for safe stretches and strengthening exercises.
--- NOTE | 2019-05-19 14:17 | RS.OPPTDN ---
Subjective Date of Note: 05/19/19 Visit #: 3 Number of visits approved by Insurance: na Date of Evaluation: 05/13/19 Payer Source: MEDICARE Treatment Diagnosis: low back pain Current Subjective/complaints:: Patient reports she feels about the same since beginning PT,but the pain is more in the L buttocks areatoday.She is doing her HEP twice per day. *Precautions: pt with history of kidney and pancreatic CA Pain Assessment - Pain Description Pain Location: lumbar/hips Pain Description: Aching Pain Description: soreness Current Pain Intensity: 4-5 - Heat/Cryotherapy Treatment: Hot Pack (20 mnis. prior to exercises) Interventions - Exercise/Activities/Manual Therapy Exercises/Activities: 40 mins. total of pelvic tilts,SKTC,DKTC,piriformis stretches,90/90 hamstring stretches.Isometric hip abd/add.SI muscle energy for alignment.Seated postural exercises of pelvic anterior /posterior pelvic rocking ,combined with scapular pro/retraction. Total minutes of Exercise: 40 Manual Therapy: n/a Total minutes of Manual Therapy: 0 HOME EXERCISE PROGRAM: pt given written HEP including: piriformis stretch, hamstring stretch, isometric hip add, resisted hip abd with green theraband. - Charges Timed Code Treatment Minutes: 40 Total Treatment Time: 60 Procedures billed for this date of service:: hp,ex 3 Assessment: Patient has improved alignment of the SI joint today ,minimal leg length difference ,corrected easily after SI MET.She is compliant to HEP 2x/day. Short Term Goals Goal #1: pt independent with initial HEP Goal to be met by: 06/03/19 Progress towards Goal:: Progressing Goal #2: pt rate LBP pain < 5/10 with activity Goal to be met by: 06/03/19 Progress towards Goal:: Progressing Goal #3: Improve flexibilty B LE hamstrings WFL's Goal to be met by: 06/03/19 Progress towards Goal:: Progressing Goal #4: pt able to stand long enough to do dishes w less pain Goal to be met by: 06/03/19 (na today) Shelter Goals Goal #1: pt able to perform normal household duties w less pain Goal to be met by: 06/24/19 Goal #2: pt rate pain < 3/10 Goal to be met by: 06/24/19 Goal #3: Improve oswestry score to < 20 Goal to be met by: 06/24/19 Plan Dates of Shelter Goals: 06/24/19 Expiration date of current Insurance Approval:: 06/24/19 PLAN: Cont. skilled PT to eliminate /reduce LBP
--- NOTE | 2019-05-24 14:14 | RS.OPPTDN ---
Subjective Date of Note: 05/24/19 Visit #: 4 Number of visits approved by Insurance: na Date of Evaluation: 05/13/19 Payer Source: MEDICARE Treatment Diagnosis: low back pain Current Subjective/complaints:: Patient reports the longer walks seem to bother her back.She had to walk alot yesterday in a hospital ,then went to [facility]. *Precautions: pt with history of kidney and pancreatic CA Pain Assessment - Pain Description Pain Location: lumbar Pain Description: Dull, Aching, Chronic Current Pain Intensity: 4 - Heat/Cryotherapy Treatment: Hot Pack (20 mins. prior to exercises) Interventions - Exercise/Activities/Manual Therapy Exercises/Activities: 40 mins. total of pelvic tilts,SKTC,DKTC,piriformis stretches,90/90 hamstring stretches,bridging,alternating hip flexion,LTR in hooklying.Bilateral leg press,1/15 each @ 75 , 90 , and 105 #. Total minutes of Exercise: 40 Manual Therapy: n/a Total minutes of Manual Therapy: 0 HOME EXERCISE PROGRAM: pt given written HEP including: piriformis stretch, hamstring stretch, isometric hip add, resisted hip abd with green theraband. - Charges Timed Code Treatment Minutes: 40 Total Treatment Time: 60 Procedures billed for this date of service:: hp,ex 3 Assessment: Patient progressing well,is compliant to HEP.She does report increased aching in the legs today with sit to stand transfers .We discussed the benefits of the leg press to improve the sit to stand.She is attentive to recommendations of the therapy staff. Patient Education: Body/Joint mechanics, Home Exercise Program Patient demonstrates compliance with HEP?: Yes Short Term Goals Goal #1: pt independent with initial HEP Goal to be met by: 06/03/19 Progress towards Goal:: Progressing Goal #2: pt rate LBP pain < 5/10 with activity Goal to be met by: 06/03/19 Progress towards Goal:: Partially Met (4/10 today ,but not yet consistently below 5) Goal #3: Improve flexibilty B LE hamstrings WFL's Goal to be met by: 06/03/19 Progress towards Goal:: Progressing Goal #4: pt able to stand long enough to do dishes w less pain Goal to be met by: 06/03/19 (na today) Box Estimator Goals Goal #1: pt able to perform normal household duties w less pain Goal to be met by: 06/24/19 Goal #2: pt rate pain < 3/10 Goal to be met by: 06/24/19 Goal #3: Improve oswestry score to < 20 Goal to be met by: 06/24/19 Plan Dates of Box Estimator Goals: 06/24/19 Expiration date of current Insurance Approval:: 06/24/19 PLAN: Cont. skilled PT to strengthen the core / LE's to assist reducing/ eliminating LBP.
--- NOTE | 2019-05-26 14:16 | RS.OPPTDN ---
Subjective Date of Note: 05/26/19 Visit #: 5 Number of visits approved by Insurance: na Date of Evaluation: 05/13/19 Payer Source: MEDICARE Treatment Diagnosis: low back pain Current Subjective/complaints:: Patient reports she is slowly improving,and her pain today seems to be more on the L hip and thigh area. *Precautions: pt with history of kidney and pancreatic CA Pain Assessment - Pain Description Pain Location: L hip /anterior thigh Pain Description: Dull, Aching, Chronic Current Pain Intensity: 4 Other Comments regarding Pain:: pain elevates when first standing ,has to take extra time before the first step or two ,then gradually the pain lessens - Heat/Cryotherapy Treatment: Hot Pack (20 mins. prior to exercises) Interventions - Exercise/Activities/Manual Therapy Exercises/Activities: 30 mins. total of pelvic tilts,SKTC,DKTC,piriformis stretches,90/90 hamstring stretches,bridging,alternating hip flexion,LTR in hooklying.SI joint MET before and after stretches today.SLR each LE to 50 degrees for pain assessment. Total minutes of Exercise: 30 Manual Therapy: n/a Total minutes of Manual Therapy: 0 HOME EXERCISE PROGRAM: pt given written HEP including: piriformis stretch, hamstring stretch, isometric hip add, resisted hip abd with green theraband. - Charges Timed Code Treatment Minutes: 30 Total Treatment Time: 50 Procedures billed for this date of service:: hp,ex 2 Short Term Goals Goal #1: pt independent with initial HEP Goal to be met by: 06/03/19 Progress towards Goal:: Progressing Goal #2: pt rate LBP pain < 5/10 with activity Goal to be met by: 06/03/19 Progress towards Goal:: Partially Met (4/10 again today ,but not yet consistent ) Goal #3: Improve flexibilty B LE hamstrings WFL's Goal to be met by: 06/03/19 Progress towards Goal:: Met Goal #4: pt able to stand long enough to do dishes w less pain Goal to be met by: 06/03/19 (na today) Progress towards Goal:: Progressing Assisted Goals Goal #1: pt able to perform normal household duties w less pain Goal to be met by: 06/24/19 Progress towards goal: Progressing Goal #2: pt rate pain < 3/10 Goal to be met by: 06/24/19 Goal #3: Improve oswestry score to < 20 Goal to be met by: 06/24/19 Plan Dates of Assisted Goals: 06/24/19 Expiration date of current Insurance Approval:: 06/24/19 PLAN: Cont. skilled PT to reduce /eliminate lumbar, Lhip and L thigh pain.
--- NOTE | 2019-05-31 13:15 | RS.CXNS ---
Date of scheduled appointment: 05/31/19 Type: Cancel Reason for Cancel/NS: Sick today.
--- NOTE | 2019-06-03 13:30 | RS.CXNS ---
Date of scheduled appointment: 06/03/19 Type: Cancel Reason for Cancel/NS: pt called and is still sick
== END 2019-06-04 23:59 ==
PROVIDERS: ATTEND Physician Assistant Surgical
DX: M54.5 Low back pain (principal)

== ENCOUNTER 2019-06-01 08:12 | Outpatient (CLI) | END 2019-06-01 08:13 | disposition home or self-care (01) | LOC: RHC-LAB 08:12 | PROVIDERS: ATTEND General Practice | DX: I10 Essential (primary) hypertension (principal); Z79.899 Other long term (current) drug therapy | CPT/HCPCS: 36415; 80053; 80061; 81001; 85025; 87086 ==